=== PATIENT | male | born 1955 | race American Indian/Alaskan Native ===

== ENCOUNTER 2018-08-11 14:27 | Inpatient (IN) | payer MEDICAID ==
[2018-08-11] VITALS (12 sets, daily range): BP systolic 148–190
[~2018-08-11] VITALS: Ht 177.8 cm; Wt 94.8 kg
[~2018-08-11 14:27] MED LIST: ETOMIDATE 20 MG/ 10 ML VIAL (AMIDATE) IVP ONE
[2018-08-11] MEDS ORDERED: ETOMIDATE 20 MG/ 10 ML VIAL (AMIDATE) IVP ONE (14:45)
[2018-08-11] MEDS ORDERED: NS 1000 ML IV.SOLN IV ONE (14:45)
[2018-08-11] MEDS ORDERED: PROPOFOL DRIP 100 ML IV ONE ×3 (14:45→17:45)
[2018-08-11] MEDS ORDERED: PANTOPRAZOLE SODIUM 40 MG/VIAL (PROTONIX) IVP ONE (15:15)
[2018-08-11 15:18] LABS: INR 1.2 (0.80-1.20); PROTHROMBIN TIME 11.7 SECS (9.5-12.5)
[2018-08-11 15:20] LABS: HEMATOCRIT 55.8 % (36-54); HEMOGLOBIN 18.9 g/dL (14.0-18.0); MEAN CORPUSCULAR HEMOGLOBIN 32 pg (27-31); MEAN CORPUSCULAR HGB CONC 34 % (32-36); MEAN CORPUSCULAR VOLUME 93 fL (79.0-98.0); RED BLOOD CELL COUNT(AUTO) 5.98 MIL/uL (4.2-6.2); WHITE BLOOD COUNT (AUTO) 28.1 K/uL (4.8-10.8)
[2018-08-11 15:21] LABS: ALANINE AMINOTRANSFERASE 46 U/L (12-78); ALBUMIN 3.8 g/dL (3.4-4.8); ANION GAP 15 (5-15); ASPARTATE AMINOTRANSFERASE 51 U/L (10-37); CALCIUM 9.3 mg/dL (8.4-11.0); CHLORIDE 105 mmol/L (98-107); CREATININE 1.96 mg/dL (0.55-1.30); GLUCOSE 137 mg/dL (70-99); LIPASE 56 U/L (73-393); PLATELET COUNT (AUTO) 308 K/uL (130-430); POTASSIUM 3.9 mmol/L (3.5-5.1); RED CELL DISTRIBUTION WIDTH 13.7 % (9.0-15.0); SODIUM SERUM 142 mmol/L (136-145); UREA NITROGEN, BLOOD 40 mg/dL (8-21)
[2018-08-11] MEDS ORDERED: PIPERACILLIN/TAZO 3.375 GM in NS 50 ML IV ONE (15:30)
[2018-08-11 15:32] LABS: GFR AFRICAN AMERICAN 45 mL/min (>90)
[2018-08-11 15:33] LABS: ACETAMINOPHEN < 1 ug/mL (1-30); ALCOHOL, BLOOD < 3 mg/dL (<10)
[2018-08-11 15:51] LABS: BILIRUBIN,URINE NEGATIVE (NEGATIVE); BLOOD, URINE 1+ (NEGATIVE); CLARITY/URINE CLEAR (CLEAR); COLOR,URINE YELLOW (YELLOW); GLUCOSE,URINE NEGATIVE (NEGATIVE); KETONES,URINE NEGATIVE (NEGATIVE); LEUKOCYTE ESTERASE ,URINE NEGATIVE (NEGATIVE); NITRITE, URINE NEGATIVE (NEGATIVE); PROTEIN URINE 2+ (NEGATIVE); UROBILINOGEN,URINE 0.2 (0.2-1.0)
[2018-08-11 15:53] LABS: BAND % (MANUAL) 27 % (0-6); BASOPHILS % (MANUAL) 0 % (0-2); EOSINOPHILS % (MANUAL) 0 % (0-7); LYMPHOCYTES % (MANUAL) 5 % (20-46); MONOCYTES % (MANUAL) 8 % (0-11)
[2018-08-11 15:56] LABS: ACETONE, SERUM NEGATIVE (NEGATIVE)
[2018-08-11 16:04] LABS: BARBITURATE, URINE NEGATIVE (NEG <=200); BENZODIAZEPINE, URINE NEGATIVE (NEG <=150); CANNABINOID, URINE NEGATIVE (NEG <=50); COCAINE, URINE NEGATIVE (NEG <=150); METHAMPHETAMINES SCREEN,URINE POSITIVE (NEG <=500); OPIATE, URINE NEGATIVE (NEG <=100); PHENCYCLIDINE SCREEN,URINE NEGATIVE (NEG <=25); UR TRICYCLIC ANTIDEPRESSANTS NEGATIVE (NEG <=300); URINE AMPHETAMINE POSITIVE (NEG <=500); URINE METHADONE NEGATIVE (NEG <=200); URINE OXYCODONE SCREEN NEGATIVE (NEG <=100); URINE PROPOXYPHENE SCREEN NEGATIVE (NEG <=300)
[2018-08-11 16:09] LABS: BACTERIA,URINE FEW /HPF (None Seen); RBC,URINE 0-3 /HPF (0-3); WBC,URINE 0-3 /HPF (0-3)
[2018-08-11] MEDS ORDERED: PIPERACILLIN/TAZOBACTAM 3.375 GM/VIAL (ZOSYN) IV ONE (16:53)
[2018-08-11] MEDS ORDERED: NACL 0.9% 1,000 ML IV ONE (17:30)
[2018-08-11] MEDS: VANCOMYCIN HCL 1,000 MG in NS 250 ML IV SCH (19:31)
[2018-08-11] MEDS: NACL 0.9% 1,000 ML IV SCH (19:33)
[2018-08-11] MEDS: hydrALAZINE HCL 20 MG/ML VIAL IVP PRN (20:45)
[2018-08-11] MEDS ORDERED: hydrALAZINE HCL 20 MG/ML VIAL ONE (20:53)
[2018-08-11] MEDS: ACETAMINOPHEN 500 MG TABLET NG PRN (20:56)
[2018-08-11] MEDS: PROPOFOL DRIP 100 ML IV PRN (21:08)
[2018-08-11] MEDS ORDERED: IPRATROPIUM BROM 0.5 MG/2.5 ML VIAL.NEB (ATROVENT) INH PRN (21:30)
[2018-08-11] MEDS ORDERED: ALBUTEROL SULFATE 0.083% 2.5 MG/3 ML VIAL.NEB INH PRN (21:30)
[2018-08-11] MEDS: LORazepam 2 MG/ML VIAL IVP PRN (22:04)
[2018-08-11] MEDS ORDERED: niCARdipine 25 MG in D5W 240 ML IV PRN (22:15)
[2018-08-11] MEDS ORDERED: niCARdipine 2.5 MG/ML, 10 ML VIAL (CARDENE) IV ONE (22:18)
[2018-08-11 23:31] LABS: CKMB RELATIVE INDEX 1.2 (0.0-2.9)
[2018-08-11] MEDS: PIPERACILLIN/TAZO 3.375/DEX-IS 50 ML IV SCH (23:36)
[2018-08-11] MEDS: IPRATROPIUM BROM 0.5 MG/2.5 ML VIAL.NEB (ATROVENT) INH SCH (23:55)
[2018-08-11] MEDS: ALBUTEROL SULFATE 0.083% 2.5 MG/3 ML VIAL.NEB INH SCH (23:55)
[2018-08-12] VITALS (34 sets, daily range): BP systolic 121–167
[2018-08-12] MEDS: NACL 0.9% 1,000 ML IV SCH ×4 (03:01→19:50)
[2018-08-12] MEDS: ALBUTEROL SULFATE 0.083% 2.5 MG/3 ML VIAL.NEB INH SCH ×2 (03:33→07:40)
[2018-08-12] MEDS: IPRATROPIUM BROM 0.5 MG/2.5 ML VIAL.NEB (ATROVENT) INH SCH ×4 (03:34→19:50)
[2018-08-12] MEDS: PROPOFOL DRIP 100 ML IV PRN (04:58)
[2018-08-12] MEDS: PIPERACILLIN/TAZO 3.375/DEX-IS 50 ML IV SCH ×4 (05:00→23:42)
[2018-08-12 05:54] LABS: BASOPHILS # (AUTO) 0.1 K/uL (0.0-0.2); BASOPHILS % (AUTO) 0.5 % (0.0-2.0); HEMATOCRIT 54.1 % (36-54); HEMOGLOBIN 17.9 g/dL (14.0-18.0); LYMPHOCYTES # (AUTO) 1.8 K/uL (1.0-5.5); LYMPHOCYTES % (AUTO) 6.3 % (20.5-51.5); MEAN CORPUSCULAR HEMOGLOBIN 31 pg (27-31); MEAN CORPUSCULAR HGB CONC 33 % (32-36); MEAN CORPUSCULAR VOLUME 94 fL (79.0-98.0); MONOCYTES # (AUTO) 2.5 K/uL (0.0-1.0); NEUTROPHILS # (AUTO) 23.6 K/uL (1.8-7.7); PLATELET COUNT (AUTO) 200 K/uL (130-430); RED BLOOD CELL COUNT(AUTO) 5.75 MIL/uL (4.2-6.2)
[2018-08-12 06:44] LABS: ALBUMIN 2.8 g/dL (3.4-4.8); CALCIUM 8.4 mg/dL (8.4-11.0); CREATININE 1.74 mg/dL (0.55-1.30); TOTAL BILIRUBIN 1.5 mg/dL (0.0-1.0)
[2018-08-12 07:31] LABS: CKMB RELATIVE INDEX 0.6 (0.0-2.9); CREATINE KINASE MB 3.9 ng/mL (0-3.6)
[2018-08-12 08:41] LABS: NEUTROPHILS % (AUTO) 84.2 % (40.0-70.0)
[2018-08-12] MEDS: FAMOTIDINE PF 20 MG/2 ML VIAL IVP SCH (08:55)
[2018-08-12] MEDS ORDERED: NACL 0.9% 1,000 ML IV ONE (10:00)
[2018-08-12] MEDS: ENALAPRILAT DIHYDRATE 1.25 MG/ML VIAL IVP PRN (11:12)
[2018-08-12] MEDS: LORazepam 2 MG/ML VIAL IVP PRN ×3 (11:13→17:58)
[2018-08-12] MEDS: LevALBUTEROL HCL 1.25 MG/0.5 ML *CONC.* VIAL.NEB (XOPENEX CONC.) INH SCH ×2 (12:08→19:50)
[2018-08-12] MEDS: ACETAMINOPHEN 500 MG TABLET NG PRN (14:35)
[2018-08-12] MEDS: MORPHINE 2 MG/ML INJ. SYRINGE IVP PRN (15:52)
[2018-08-12] MEDS: VANCOMYCIN HCL 1,000 MG in NS 250 ML IV SCH (18:47)
[2018-08-13] VITALS (31 sets, daily range): BP systolic 130–182
[2018-08-13] MEDS: LevALBUTEROL HCL 1.25 MG/0.5 ML *CONC.* VIAL.NEB (XOPENEX CONC.) INH SCH ×4 (00:50→19:35)
[2018-08-13] MEDS: IPRATROPIUM BROM 0.5 MG/2.5 ML VIAL.NEB (ATROVENT) INH SCH ×4 (00:50→19:35)
[2018-08-13] MEDS: NACL 0.9% 1,000 ML IV SCH ×2 (02:36→09:00)
[2018-08-13] MEDS: PIPERACILLIN/TAZO 3.375/DEX-IS 50 ML IV SCH ×3 (05:29→17:19)
[2018-08-13 05:57] LABS: BASOPHILS # (AUTO) 0.1 K/uL (0.0-0.2); BASOPHILS % (AUTO) 0.3 % (0.0-2.0); HEMATOCRIT 44.8 % (36-54); HEMOGLOBIN 14.9 g/dL (14.0-18.0); LYMPHOCYTES % (AUTO) 5.8 % (20.5-51.5); MEAN CORPUSCULAR HEMOGLOBIN 31 pg (27-31); MEAN CORPUSCULAR HGB CONC 33 % (32-36); MEAN CORPUSCULAR VOLUME 94 fL (79.0-98.0); MONOCYTES # (AUTO) 1.4 K/uL (0.0-1.0); MONOCYTES % (AUTO) 7.9 % (1.7-9.3); NEUTROPHILS # (AUTO) 14.8 K/uL (1.8-7.7); PLATELET COUNT (AUTO) 120 K/uL (130-430); RED BLOOD CELL COUNT(AUTO) 4.77 MIL/uL (4.2-6.2); RED CELL DISTRIBUTION WIDTH 13.5 % (9.0-15.0); WHITE BLOOD COUNT (AUTO) 17.3 K/uL (4.8-10.8)
[2018-08-13 06:42] LABS: CREATININE 1.24 mg/dL (0.55-1.30); POTASSIUM 3.7 mmol/L (3.5-5.1)
[2018-08-13 07:00] LABS: ALBUMIN 2.1 g/dL (3.4-4.8); THYROID STIMULATING HORMONE 0.99 uIu/mL (0.36-3.74); TOTAL BILIRUBIN 1.8 mg/dL (0.0-1.0)
[2018-08-13] MEDS: FAMOTIDINE PF 20 MG/2 ML VIAL IVP SCH (08:59)
[2018-08-13] MEDS: ENALAPRILAT DIHYDRATE 1.25 MG/ML VIAL IVP PRN (10:13)
[2018-08-13] MEDS: 0.45% NACL 1,000 ML IV SCH ×2 (11:46→18:07)
[2018-08-13] MEDS: ACETAMINOPHEN 500 MG TABLET NG PRN (14:29)
[2018-08-13] MEDS: VANCOMYCIN HCL 1,000 MG in NS 250 ML IV SCH (17:20)
[2018-08-14] VITALS (31 sets, daily range): BP systolic 131–183
[2018-08-14] MEDS: IPRATROPIUM BROM 0.5 MG/2.5 ML VIAL.NEB (ATROVENT) INH SCH ×4 (00:36→19:53)
[2018-08-14] MEDS: LevALBUTEROL HCL 1.25 MG/0.5 ML *CONC.* VIAL.NEB (XOPENEX CONC.) INH SCH ×4 (00:36→19:53)
[2018-08-14] MEDS: PIPERACILLIN/TAZO 3.375/DEX-IS 50 ML IV SCH ×5 (01:58→23:30)
[2018-08-14] MEDS: 0.45% NACL 1,000 ML IV SCH ×2 (02:21→11:33)
[2018-08-14 05:10] LABS: BASOPHILS # (AUTO) 0.1 K/uL (0.0-0.2); BASOPHILS % (AUTO) 0.4 % (0.0-2.0); EOSINOPHILS % (AUTO) 0.2 % (0.0-4.0); HEMATOCRIT 40.6 % (36-54); HEMOGLOBIN 13.5 g/dL (14.0-18.0); LYMPHOCYTES % (AUTO) 5.9 % (20.5-51.5); MEAN CORPUSCULAR HEMOGLOBIN 31 pg (27-31); MEAN CORPUSCULAR HGB CONC 33 % (32-36); MEAN CORPUSCULAR VOLUME 94 fL (79.0-98.0); MONOCYTES # (AUTO) 1.3 K/uL (0.0-1.0); NEUTROPHILS # (AUTO) 14.2 K/uL (1.8-7.7); NEUTROPHILS % (AUTO) 85.5 % (40.0-70.0); PLATELET COUNT (AUTO) 118 K/uL (130-430); RED BLOOD CELL COUNT(AUTO) 4.34 MIL/uL (4.2-6.2); RED CELL DISTRIBUTION WIDTH 13.7 % (9.0-15.0); WHITE BLOOD COUNT (AUTO) 16.6 K/uL (4.8-10.8)
[2018-08-14 05:30] LABS: CALCIUM 8.1 mg/dL (8.4-11.0); CREATININE 1.02 mg/dL (0.55-1.30); POTASSIUM 3.7 mmol/L (3.5-5.1)
[2018-08-14 05:33] LABS: ALBUMIN 1.9 g/dL (3.4-4.8); TOTAL BILIRUBIN 1.2 mg/dL (0.0-1.0)
[2018-08-14] MEDS: FAMOTIDINE PF 20 MG/2 ML VIAL IVP SCH (09:03)
[2018-08-14] MEDS: ACETAMINOPHEN 500 MG TABLET NG PRN (15:31)
[2018-08-14] MEDS: ENALAPRILAT DIHYDRATE 1.25 MG/ML VIAL IVP PRN ×2 (15:31→23:33)
[2018-08-14] MEDS: VANCOMYCIN HCL 1,000 MG in NS 250 ML IV SCH (17:24)
[2018-08-15] VITALS (32 sets, daily range): BP systolic 121–174
[2018-08-15] MEDS: IPRATROPIUM BROM 0.5 MG/2.5 ML VIAL.NEB (ATROVENT) INH SCH ×4 (00:32→19:43)
[2018-08-15] MEDS: LevALBUTEROL HCL 1.25 MG/0.5 ML *CONC.* VIAL.NEB (XOPENEX CONC.) INH SCH ×4 (00:32→19:43)
[2018-08-15] MEDS ORDERED: VANCOMYCIN HCL 1,250 MG in NS 250 ML IV SCH (05:00)
[2018-08-15] MEDS: ACETAMINOPHEN 500 MG TABLET NG PRN ×4 (05:23→23:58)
[2018-08-15] MEDS: PIPERACILLIN/TAZO 3.375/DEX-IS 50 ML IV SCH ×2 (05:24→12:45)
[2018-08-15] MEDS: FAMOTIDINE PF 20 MG/2 ML VIAL IVP SCH (08:04)
[2018-08-15 08:49] LABS: BASOPHILS % (AUTO) 0.3 % (0.0-2.0); CALCIUM 7.6 mg/dL (8.4-11.0); CREATININE 1.02 mg/dL (0.55-1.30); EOSINOPHILS # (AUTO) 0.2 K/uL (0.0-0.4); EOSINOPHILS % (AUTO) 1.2 % (0.0-4.0); HEMATOCRIT 37.3 % (36-54); HEMOGLOBIN 12.4 g/dL (14.0-18.0); LYMPHOCYTES # (AUTO) 1.1 K/uL (1.0-5.5); LYMPHOCYTES % (AUTO) 7.3 % (20.5-51.5); MEAN CORPUSCULAR HEMOGLOBIN 31 pg (27-31); MEAN CORPUSCULAR HGB CONC 33 % (32-36); MEAN CORPUSCULAR VOLUME 94 fL (79.0-98.0); MONOCYTES # (AUTO) 1.5 K/uL (0.0-1.0); MONOCYTES % (AUTO) 9.6 % (1.7-9.3); NEUTROPHILS # (AUTO) 12.8 K/uL (1.8-7.7); PLATELET COUNT (AUTO) 119 K/uL (130-430); POTASSIUM 3.2 mmol/L (3.5-5.1); RED BLOOD CELL COUNT(AUTO) 3.96 MIL/uL (4.2-6.2); RED CELL DISTRIBUTION WIDTH 13.5 % (9.0-15.0); WHITE BLOOD COUNT (AUTO) 15.7 K/uL (4.8-10.8)
[2018-08-15 08:53] LABS: ALBUMIN 1.9 g/dL (3.4-4.8); TOTAL BILIRUBIN 1.3 mg/dL (0.0-1.0)
[2018-08-15] MEDS: 0.45% NACL 1,000 ML IV SCH ×2 (10:41→12:43)
[2018-08-15 11:12] LABS: NEUTROPHILS % (AUTO) 81.6 % (40.0-70.0)
[2018-08-15] MEDS ORDERED: POTASSIUM CHLORIDE 20 MEQ/PKT PACKET PO ONE (14:45)
[2018-08-15] MEDS: hydrALAZINE HCL 20 MG/ML VIAL IVP PRN (15:40)
[2018-08-15] MEDS: cefTRIAXone 1 GM in D5W 50 ML IV SCH (17:16)
[2018-08-15] MEDS: metroNIDAZOLE 500 mg/NS 100 ML IV SCH (21:26)
[2018-08-16] VITALS (29 sets, daily range): BP systolic 128–167
[2018-08-16] MEDS: 0.45% NACL 1,000 ML IV SCH ×2 (01:16→16:04)
[2018-08-16] MEDS: IPRATROPIUM BROM 0.5 MG/2.5 ML VIAL.NEB (ATROVENT) INH SCH ×4 (01:45→19:40)
[2018-08-16] MEDS: LevALBUTEROL HCL 1.25 MG/0.5 ML *CONC.* VIAL.NEB (XOPENEX CONC.) INH SCH ×4 (01:45→19:40)
[2018-08-16] MEDS: metroNIDAZOLE 500 mg/NS 100 ML IV SCH ×3 (05:12→21:58)
[2018-08-16] MEDS: FAMOTIDINE PF 20 MG/2 ML VIAL IVP SCH (08:55)
[2018-08-16 11:09] LABS: BASOPHILS % (AUTO) 0.3 % (0.0-2.0); EOSINOPHILS # (AUTO) 0.3 K/uL (0.0-0.4); EOSINOPHILS % (AUTO) 2.4 % (0.0-4.0); HEMATOCRIT 37.9 % (36-54); HEMOGLOBIN 12.7 g/dL (14.0-18.0); LYMPHOCYTES # (AUTO) 0.7 K/uL (1.0-5.5); LYMPHOCYTES % (AUTO) 5.4 % (20.5-51.5); MEAN CORPUSCULAR HEMOGLOBIN 31 pg (27-31); MEAN CORPUSCULAR HGB CONC 33 % (32-36); MEAN CORPUSCULAR VOLUME 94 fL (79.0-98.0); MONOCYTES # (AUTO) 1.4 K/uL (0.0-1.0); MONOCYTES % (AUTO) 9.9 % (1.7-9.3); NEUTROPHILS # (AUTO) 11.3 K/uL (1.8-7.7); PLATELET COUNT (AUTO) 155 K/uL (130-430); RED BLOOD CELL COUNT(AUTO) 4.03 MIL/uL (4.2-6.2); RED CELL DISTRIBUTION WIDTH 13.3 % (9.0-15.0); WHITE BLOOD COUNT (AUTO) 13.7 K/uL (4.8-10.8)
[2018-08-16 11:13] LABS: CALCIUM 8.3 mg/dL (8.4-11.0); CREATININE 0.72 mg/dL (0.55-1.30); POTASSIUM 3.7 mmol/L (3.5-5.1)
[2018-08-16 11:18] LABS: TOTAL BILIRUBIN 0.8 mg/dL (0.0-1.0)
[2018-08-16] MEDS: hydrALAZINE HCL 20 MG/ML VIAL IVP PRN (13:44)
[2018-08-16] MEDS: MORPHINE 2 MG/ML INJ. SYRINGE IVP PRN ×2 (14:39→22:00)
[2018-08-16] MEDS: LORazepam 2 MG/ML VIAL IVP PRN ×3 (14:39→22:00)
[2018-08-16] MEDS: cefTRIAXone 1 GM in D5W 50 ML IV SCH (16:04)
[2018-08-17] VITALS (30 sets, daily range): BP systolic 121–159
[2018-08-17] MEDS: ACETAMINOPHEN 500 MG TABLET NG PRN ×2 (01:05→08:17)
[2018-08-17] MEDS: LORazepam 2 MG/ML VIAL IVP PRN ×3 (01:18→23:54)
[2018-08-17] MEDS: IPRATROPIUM BROM 0.5 MG/2.5 ML VIAL.NEB (ATROVENT) INH SCH ×4 (01:20→19:50)
[2018-08-17] MEDS: LevALBUTEROL HCL 1.25 MG/0.5 ML *CONC.* VIAL.NEB (XOPENEX CONC.) INH SCH ×4 (01:20→19:50)
[2018-08-17] MEDS: metroNIDAZOLE 500 mg/NS 100 ML IV SCH ×3 (05:26→21:11)
[2018-08-17 06:32] LABS: BASOPHILS # (AUTO) 0.1 K/uL (0.0-0.2); BASOPHILS % (AUTO) 0.3 % (0.0-2.0); EOSINOPHILS # (AUTO) 0.1 K/uL (0.0-0.4); EOSINOPHILS % (AUTO) 0.7 % (0.0-4.0); HEMATOCRIT 38.1 % (36-54); HEMOGLOBIN 12.8 g/dL (14.0-18.0); LYMPHOCYTES # (AUTO) 0.8 K/uL (1.0-5.5); LYMPHOCYTES % (AUTO) 4.4 % (20.5-51.5); MEAN CORPUSCULAR HEMOGLOBIN 32 pg (27-31); MEAN CORPUSCULAR HGB CONC 34 % (32-36); MEAN CORPUSCULAR VOLUME 95 fL (79.0-98.0); MONOCYTES % (AUTO) 11.1 % (1.7-9.3); NEUTROPHILS # (AUTO) 14.7 K/uL (1.8-7.7); NEUTROPHILS % (AUTO) 83.5 % (40.0-70.0); PLATELET COUNT (AUTO) 199 K/uL (130-430); RED BLOOD CELL COUNT(AUTO) 4.03 MIL/uL (4.2-6.2); RED CELL DISTRIBUTION WIDTH 13.3 % (9.0-15.0); WHITE BLOOD COUNT (AUTO) 17.6 K/uL (4.8-10.8)
[2018-08-17 06:48] LABS: CALCIUM 8.2 mg/dL (8.4-11.0); CREATININE 0.81 mg/dL (0.55-1.30); POTASSIUM 3.6 mmol/L (3.5-5.1)
[2018-08-17 07:46] LABS: ERYTHROCYTE SEDIMENTATION RATE 37 MM/HR (0-15)
[2018-08-17] MEDS: FAMOTIDINE PF 20 MG/2 ML VIAL IVP SCH (08:15)
[2018-08-17] MEDS ORDERED: ENOXAPARIN SODIUM 40 MG/0.4 ML SYRINGE SUBCUT SCH (09:00)
[2018-08-17] MEDS: MORPHINE 2 MG/ML INJ. SYRINGE IVP PRN (10:14)
[2018-08-17 11:31] LABS: C-REACTIVE PROTEIN QUANT 13.7 mg/dL (0-0.5)
[2018-08-17] MEDS ORDERED: *LOVENOX 1MG/KG Q12H/PHARMACY XX ONE (13:45)
[2018-08-17] MEDS: 0.45% NACL 1,000 ML IV SCH (14:14)
[2018-08-17] MEDS ORDERED: ENOXAPARIN SODIUM 60 MG/0.6 ML SYRINGE SUBCUT ONE (14:15)
[2018-08-17] MEDS: cefTRIAXone 1 GM in D5W 50 ML IV SCH (17:35)
[2018-08-17] MEDS: ENOXAPARIN SODIUM 100 MG/ML SYRINGE SUBCUT SCH (21:12)
[2018-08-18] VITALS (27 sets, daily range): BP systolic 136–160
[2018-08-18] MEDS: LevALBUTEROL HCL 1.25 MG/0.5 ML *CONC.* VIAL.NEB (XOPENEX CONC.) INH SCH ×4 (01:13→19:39)
[2018-08-18] MEDS: IPRATROPIUM BROM 0.5 MG/2.5 ML VIAL.NEB (ATROVENT) INH SCH ×4 (01:13→19:39)
[2018-08-18] MEDS: metroNIDAZOLE 500 mg/NS 100 ML IV SCH ×3 (05:58→21:49)
[2018-08-18 06:00] LABS: BASOPHILS % (AUTO) 0.3 % (0.0-2.0); EOSINOPHILS # (AUTO) 0.3 K/uL (0.0-0.4); EOSINOPHILS % (AUTO) 1.7 % (0.0-4.0); HEMATOCRIT 37.5 % (36-54); HEMOGLOBIN 12.6 g/dL (14.0-18.0); LYMPHOCYTES # (AUTO) 1.1 K/uL (1.0-5.5); LYMPHOCYTES % (AUTO) 6.6 % (20.5-51.5); MEAN CORPUSCULAR HEMOGLOBIN 32 pg (27-31); MEAN CORPUSCULAR HGB CONC 34 % (32-36); MEAN CORPUSCULAR VOLUME 94 fL (79.0-98.0); MONOCYTES # (AUTO) 1.5 K/uL (0.0-1.0); MONOCYTES % (AUTO) 9.3 % (1.7-9.3); NEUTROPHILS # (AUTO) 13.5 K/uL (1.8-7.7); NEUTROPHILS % (AUTO) 82.1 % (40.0-70.0); PLATELET COUNT (AUTO) 297 K/uL (130-430); RED BLOOD CELL COUNT(AUTO) 3.98 MIL/uL (4.2-6.2); RED CELL DISTRIBUTION WIDTH 13.4 % (9.0-15.0); WHITE BLOOD COUNT (AUTO) 16.5 K/uL (4.8-10.8)
[2018-08-18 06:33] LABS: ALBUMIN 1.9 g/dL (3.4-4.8); CALCIUM 8.4 mg/dL (8.4-11.0); CREATININE 0.78 mg/dL (0.55-1.30); POTASSIUM 3.7 mmol/L (3.5-5.1); TOTAL BILIRUBIN 0.6 mg/dL (0.0-1.0)
[2018-08-18 07:03] LABS: C-REACTIVE PROTEIN QUANT 26.1 mg/dL (0-0.5)
[2018-08-18 07:36] LABS: ERYTHROCYTE SEDIMENTATION RATE 54 MM/HR (0-15)
[2018-08-18] MEDS: ENOXAPARIN SODIUM 100 MG/ML SYRINGE SUBCUT SCH ×2 (09:25→21:51)
[2018-08-18] MEDS: FAMOTIDINE PF 20 MG/2 ML VIAL IVP SCH (09:25)
[2018-08-18] MEDS: MINERAL OIL/PETROLATUM,WHITE 3.5 GM EYE OINT. OP SCH ×3 (15:00→21:51)
[2018-08-18] MEDS: cefTRIAXone 1 GM in D5W 50 ML IV SCH (16:36)
[2018-08-18] MEDS: 0.45% NACL 1,000 ML IV SCH (17:41)
[2018-08-19] VITALS (29 sets, daily range): BP systolic 131–183
[2018-08-19] MEDS: IPRATROPIUM BROM 0.5 MG/2.5 ML VIAL.NEB (ATROVENT) INH SCH ×4 (01:13→19:36)
[2018-08-19] MEDS: LevALBUTEROL HCL 1.25 MG/0.5 ML *CONC.* VIAL.NEB (XOPENEX CONC.) INH SCH ×4 (01:13→19:35)
[2018-08-19 05:55] LABS: BASOPHILS % (AUTO) 0.2 % (0.0-2.0); EOSINOPHILS # (AUTO) 0.4 K/uL (0.0-0.4); EOSINOPHILS % (AUTO) 1.8 % (0.0-4.0); HEMATOCRIT 38.2 % (36-54); HEMOGLOBIN 12.9 g/dL (14.0-18.0); LYMPHOCYTES # (AUTO) 1.2 K/uL (1.0-5.5); LYMPHOCYTES % (AUTO) 6.3 % (20.5-51.5); MEAN CORPUSCULAR HEMOGLOBIN 32 pg (27-31); MEAN CORPUSCULAR HGB CONC 34 % (32-36); MEAN CORPUSCULAR VOLUME 94 fL (79.0-98.0); MONOCYTES # (AUTO) 1.7 K/uL (0.0-1.0); MONOCYTES % (AUTO) 8.5 % (1.7-9.3); NEUTROPHILS # (AUTO) 16.2 K/uL (1.8-7.7); NEUTROPHILS % (AUTO) 83.2 % (40.0-70.0); PLATELET COUNT (AUTO) 388 K/uL (130-430); RED BLOOD CELL COUNT(AUTO) 4.07 MIL/uL (4.2-6.2); RED CELL DISTRIBUTION WIDTH 13.4 % (9.0-15.0); WHITE BLOOD COUNT (AUTO) 19.5 K/uL (4.8-10.8)
[2018-08-19] MEDS: metroNIDAZOLE 500 mg/NS 100 ML IV SCH ×3 (06:06→21:11)
[2018-08-19 06:25] LABS: ALBUMIN 1.8 g/dL (3.4-4.8); CALCIUM 8.2 mg/dL (8.4-11.0); CREATININE 0.81 mg/dL (0.55-1.30); POTASSIUM 3.7 mmol/L (3.5-5.1); TOTAL BILIRUBIN 0.5 mg/dL (0.0-1.0)
[2018-08-19] MEDS: FAMOTIDINE PF 20 MG/2 ML VIAL IVP SCH (09:54)
[2018-08-19] MEDS: MINERAL OIL/PETROLATUM,WHITE 3.5 GM EYE OINT. OP SCH ×3 (09:55→20:24)
[2018-08-19] MEDS: ENOXAPARIN SODIUM 100 MG/ML SYRINGE SUBCUT SCH (09:56)
[2018-08-19] MEDS: cefTRIAXone 1 GM in D5W 50 ML IV SCH (15:53)
[2018-08-19] MEDS: 0.45% NACL 1,000 ML IV SCH (15:56)
[2018-08-19] MEDS: HEPARIN 25,000 UNITS/D5W 250ML 250 ML IV PRN (17:49)
[2018-08-19] MEDS: ENALAPRILAT DIHYDRATE 1.25 MG/ML VIAL IVP PRN (20:23)
[2018-08-20] VITALS (31 sets, daily range): BP systolic 136–168
[2018-08-20] MEDS: LevALBUTEROL HCL 1.25 MG/0.5 ML *CONC.* VIAL.NEB (XOPENEX CONC.) INH SCH ×4 (00:49→19:15)
[2018-08-20] MEDS: IPRATROPIUM BROM 0.5 MG/2.5 ML VIAL.NEB (ATROVENT) INH SCH ×4 (00:49→19:15)
[2018-08-20] MEDS: metroNIDAZOLE 500 mg/NS 100 ML IV SCH ×3 (05:49→21:37)
[2018-08-20 07:46] LABS: BASOPHILS % (AUTO) 0.1 % (0.0-2.0); EOSINOPHILS # (AUTO) 0.1 K/uL (0.0-0.4); EOSINOPHILS % (AUTO) 0.8 % (0.0-4.0); HEMATOCRIT 29.5 % (36-54); LYMPHOCYTES # (AUTO) 0.9 K/uL (1.0-5.5); LYMPHOCYTES % (AUTO) 5.8 % (20.5-51.5); MEAN CORPUSCULAR HEMOGLOBIN 31 pg (27-31); MEAN CORPUSCULAR HGB CONC 33 % (32-36); MEAN CORPUSCULAR VOLUME 95 fL (79.0-98.0); MONOCYTES % (AUTO) 6.2 % (1.7-9.3); NEUTROPHILS # (AUTO) 13.9 K/uL (1.8-7.7); NEUTROPHILS % (AUTO) 87.1 % (40.0-70.0); PLATELET COUNT (AUTO) 404 K/uL (130-430); RED CELL DISTRIBUTION WIDTH 13.5 % (9.0-15.0)
[2018-08-20 08:00] LABS: ALBUMIN 1.7 g/dL (3.4-4.8); CALCIUM 7.9 mg/dL (8.4-11.0); CREATININE 0.74 mg/dL (0.55-1.30); POTASSIUM 3.8 mmol/L (3.5-5.1); TOTAL BILIRUBIN 0.5 mg/dL (0.0-1.0)
[2018-08-20] MEDS: MINERAL OIL/PETROLATUM,WHITE 3.5 GM EYE OINT. OP SCH ×3 (08:26→20:17)
[2018-08-20] MEDS: FAMOTIDINE PF 20 MG/2 ML VIAL IVP SCH (08:26)
[2018-08-20 08:34] LABS: HEMOGLOBIN 9.7 g/dL (14.0-18.0)
[2018-08-20] MEDS ORDERED: HEPARIN SODIUM,PORCINE 3000 UNITS/0.6 ML BOLUS IVP PRN (11:15)
[2018-08-20] MEDS ORDERED: HEPARIN SODIUM,PORCINE 2000 UNITS/0.4 ML BOLUS IVP PRN (11:15)
[2018-08-20] MEDS ORDERED: BALSAM PERU/CASTOR OIL 60 GM OINT...G. TP ONE (11:45)
[2018-08-20] MEDS: cefTRIAXone 1 GM in D5W 50 ML IV SCH (16:01)
[2018-08-20] MEDS: 0.45% NACL 1,000 ML IV SCH (16:02)
[2018-08-20] MEDS: HEPARIN 25,000 UNITS/D5W 250ML 250 ML IV PRN (16:32)
[2018-08-20] MEDS: ENALAPRILAT DIHYDRATE 1.25 MG/ML VIAL IVP PRN (17:21)
[2018-08-21] VITALS (33 sets, daily range): BP systolic 128–164
[2018-08-21] MEDS: IPRATROPIUM BROM 0.5 MG/2.5 ML VIAL.NEB (ATROVENT) INH SCH ×4 (00:45→19:49)
[2018-08-21] MEDS: LevALBUTEROL HCL 1.25 MG/0.5 ML *CONC.* VIAL.NEB (XOPENEX CONC.) INH SCH ×4 (00:45→19:50)
[2018-08-21 05:22] LABS: BASOPHILS % (AUTO) 0.2 % (0.0-2.0); EOSINOPHILS # (AUTO) 0.2 K/uL (0.0-0.4); EOSINOPHILS % (AUTO) 0.9 % (0.0-4.0); HEMATOCRIT 39.1 % (36-54); LYMPHOCYTES # (AUTO) 1.2 K/uL (1.0-5.5); MEAN CORPUSCULAR HEMOGLOBIN 32 pg (27-31); MEAN CORPUSCULAR HGB CONC 33 % (32-36); MEAN CORPUSCULAR VOLUME 95 fL (79.0-98.0); MONOCYTES # (AUTO) 1.2 K/uL (0.0-1.0); MONOCYTES % (AUTO) 5.6 % (1.7-9.3); NEUTROPHILS # (AUTO) 17.9 K/uL (1.8-7.7); NEUTROPHILS % (AUTO) 87.3 % (40.0-70.0); PLATELET COUNT (AUTO) 606 K/uL (130-430); RED BLOOD CELL COUNT(AUTO) 4.11 MIL/uL (4.2-6.2); RED CELL DISTRIBUTION WIDTH 13.2 % (9.0-15.0); WHITE BLOOD COUNT (AUTO) 20.6 K/uL (4.8-10.8)
[2018-08-21 05:47] LABS: ALBUMIN 1.8 g/dL (3.4-4.8); CREATININE 0.76 mg/dL (0.55-1.30); POTASSIUM 3.7 mmol/L (3.5-5.1); TOTAL BILIRUBIN 0.5 mg/dL (0.0-1.0)
[2018-08-21] MEDS: metroNIDAZOLE 500 mg/NS 100 ML IV SCH ×3 (05:50→21:49)
[2018-08-21] MEDS: BALSAM PERU/CASTOR OIL 60 GM OINT...G. TP SCH (07:55)
[2018-08-21] MEDS: MINERAL OIL/PETROLATUM,WHITE 3.5 GM EYE OINT. OP SCH ×3 (07:55→21:49)
[2018-08-21] MEDS: FAMOTIDINE PF 20 MG/2 ML VIAL IVP SCH (07:57)
[2018-08-21] MEDS: HEPARIN 25,000 UNITS/D5W 250ML 250 ML IV PRN (08:04)
[2018-08-21] MEDS: ACETAMINOPHEN 500 MG TABLET NG PRN (09:48)
[2018-08-21] MEDS: cefTRIAXone 1 GM in D5W 50 ML IV SCH (16:01)
[2018-08-21] MEDS: 0.45% NACL 1,000 ML IV SCH (16:32)
[2018-08-21] MEDS: CIPROFLOXACIN HCL 0.3% EYE DRP 2.5 ML DROPS OP SCH (18:34)
[2018-08-22] VITALS (36 sets, daily range): BP systolic 122–156
[2018-08-22] MEDS: CIPROFLOXACIN HCL 0.3% EYE DRP 2.5 ML DROPS OP SCH ×4 (00:22→18:29)
[2018-08-22] MEDS: HEPARIN 25,000 UNITS/D5W 250ML 250 ML IV PRN ×2 (00:25→16:28)
[2018-08-22] MEDS: IPRATROPIUM BROM 0.5 MG/2.5 ML VIAL.NEB (ATROVENT) INH SCH ×4 (01:35→19:40)
[2018-08-22] MEDS: LevALBUTEROL HCL 1.25 MG/0.5 ML *CONC.* VIAL.NEB (XOPENEX CONC.) INH SCH ×4 (01:35→19:40)
[2018-08-22 04:30] LABS: BILIRUBIN,URINE NEGATIVE (NEGATIVE); BLOOD, URINE 3+ (NEGATIVE); CLARITY/URINE CLEAR (CLEAR); COLOR,URINE YELLOW (YELLOW); GLUCOSE,URINE NEGATIVE (NEGATIVE); KETONES,URINE NEGATIVE (NEGATIVE); LEUKOCYTE ESTERASE ,URINE TRACE (NEGATIVE); NITRITE, URINE NEGATIVE (NEGATIVE); PH,URINE 5.5 (5.0-8.0); PROTEIN URINE TRACE (NEGATIVE)
[2018-08-22 04:38] LABS: BACTERIA,URINE FEW /HPF (None Seen)
[2018-08-22 05:48] LABS: HEMATOCRIT 37.7 % (36-54); HEMOGLOBIN 12.4 g/dL (14.0-18.0); MEAN CORPUSCULAR HEMOGLOBIN 31 pg (27-31); MEAN CORPUSCULAR HGB CONC 33 % (32-36); MEAN CORPUSCULAR VOLUME 94 fL (79.0-98.0); PLATELET COUNT (AUTO) 639 K/uL (130-430); RED CELL DISTRIBUTION WIDTH 13.3 % (9.0-15.0); WHITE BLOOD COUNT (AUTO) 20.1 K/uL (4.8-10.8)
[2018-08-22] MEDS: metroNIDAZOLE 500 mg/NS 100 ML IV SCH (06:01)
[2018-08-22 06:06] LABS: ATYPICAL LYMPHOCYTES % 0 % (0-0); BAND % (MANUAL) 5 % (0-6); BASOPHILS % (MANUAL) 0 % (0-2); EOSINOPHILS % (MANUAL) 1 % (0-7); LYMPHOCYTES % (MANUAL) 5 % (20-46); METAMYELOCYTES % 1 % (0-0); MONOCYTES % (MANUAL) 6 % (0-11); MYELOCYTES % 1 % (0-0)
[2018-08-22 06:08] LABS: ALBUMIN 1.9 g/dL (3.4-4.8); CALCIUM 8.1 mg/dL (8.4-11.0); CREATININE 0.65 mg/dL (0.55-1.30); POTASSIUM 3.8 mmol/L (3.5-5.1); TOTAL BILIRUBIN 0.4 mg/dL (0.0-1.0)
[2018-08-22] MEDS ORDERED: PEG 400/HYPROMELLOSE/GLYCERIN 15 ML DROPS OP PRN (08:15)
[2018-08-22] MEDS: BALSAM PERU/CASTOR OIL 60 GM OINT...G. TP SCH (08:56)
[2018-08-22] MEDS: MINERAL OIL/PETROLATUM,WHITE 3.5 GM EYE OINT. OP SCH ×3 (08:57→20:22)
[2018-08-22] MEDS: FAMOTIDINE PF 20 MG/2 ML VIAL IVP SCH (08:57)
[2018-08-22] MEDS: 0.45% NACL 1,000 ML IV SCH (18:28)
[2018-08-22] MEDS: CEFEPIME 1 GM in D5W 50 ML IV SCH (20:22)
[2018-08-23] VITALS (35 sets, daily range): BP systolic 131–175
[2018-08-23] MEDS: IPRATROPIUM BROM 0.5 MG/2.5 ML VIAL.NEB (ATROVENT) INH SCH ×4 (01:09→19:46)
[2018-08-23] MEDS: LevALBUTEROL HCL 1.25 MG/0.5 ML *CONC.* VIAL.NEB (XOPENEX CONC.) INH SCH ×4 (01:10→19:46)
[2018-08-23] MEDS: CIPROFLOXACIN HCL 0.3% EYE DRP 2.5 ML DROPS OP SCH ×4 (01:34→18:18)
[2018-08-23 05:42] LABS: BASOPHILS # (AUTO) 0.1 K/uL (0.0-0.2); BASOPHILS % (AUTO) 0.7 % (0.0-2.0); EOSINOPHILS # (AUTO) 0.3 K/uL (0.0-0.4); EOSINOPHILS % (AUTO) 1.9 % (0.0-4.0); HEMATOCRIT 36.6 % (36-54); HEMOGLOBIN 12.1 g/dL (14.0-18.0); LYMPHOCYTES # (AUTO) 1.1 K/uL (1.0-5.5); LYMPHOCYTES % (AUTO) 6.5 % (20.5-51.5); MEAN CORPUSCULAR HEMOGLOBIN 31 pg (27-31); MEAN CORPUSCULAR HGB CONC 33 % (32-36); MEAN CORPUSCULAR VOLUME 95 fL (79.0-98.0); MONOCYTES # (AUTO) 1.2 K/uL (0.0-1.0); NEUTROPHILS # (AUTO) 14.5 K/uL (1.8-7.7); NEUTROPHILS % (AUTO) 83.9 % (40.0-70.0); PLATELET COUNT (AUTO) 624 K/uL (130-430); RED BLOOD CELL COUNT(AUTO) 3.87 MIL/uL (4.2-6.2); RED CELL DISTRIBUTION WIDTH 13.6 % (9.0-15.0); WHITE BLOOD COUNT (AUTO) 17.3 K/uL (4.8-10.8)
[2018-08-23 06:08] LABS: ALBUMIN 1.8 g/dL (3.4-4.8); CALCIUM 8.1 mg/dL (8.4-11.0); CREATININE 0.72 mg/dL (0.55-1.30); POTASSIUM 3.8 mmol/L (3.5-5.1); TOTAL BILIRUBIN 0.4 mg/dL (0.0-1.0)
[2018-08-23] MEDS: FAMOTIDINE PF 20 MG/2 ML VIAL IVP SCH (08:26)
[2018-08-23] MEDS: HEPARIN 25,000 UNITS/D5W 250ML 250 ML IV PRN ×2 (08:30→22:46)
[2018-08-23] MEDS: CEFEPIME 1 GM in D5W 50 ML IV SCH ×2 (08:35→21:01)
[2018-08-23] MEDS: MINERAL OIL/PETROLATUM,WHITE 3.5 GM EYE OINT. OP SCH ×3 (08:55→21:01)
[2018-08-23] MEDS: BALSAM PERU/CASTOR OIL 60 GM OINT...G. TP SCH (08:55)
[2018-08-23] MEDS: hydrALAZINE HCL 20 MG/ML VIAL IVP PRN (09:23)
[2018-08-23] MEDS: 0.45% NACL 1,000 ML IV SCH (17:25)
[2018-08-24] VITALS (31 sets, daily range): BP systolic 124–158
[2018-08-24] MEDS: CIPROFLOXACIN HCL 0.3% EYE DRP 2.5 ML DROPS OP SCH ×4 (00:38→18:14)
[2018-08-24] MEDS: IPRATROPIUM BROM 0.5 MG/2.5 ML VIAL.NEB (ATROVENT) INH SCH ×4 (01:34→19:45)
[2018-08-24] MEDS: LevALBUTEROL HCL 1.25 MG/0.5 ML *CONC.* VIAL.NEB (XOPENEX CONC.) INH SCH ×4 (01:35→19:45)
[2018-08-24 05:19] LABS: BASOPHILS # (AUTO) 0.1 K/uL (0.0-0.2); BASOPHILS % (AUTO) 0.9 % (0.0-2.0); EOSINOPHILS # (AUTO) 0.3 K/uL (0.0-0.4); EOSINOPHILS % (AUTO) 1.8 % (0.0-4.0); HEMATOCRIT 38.2 % (36-54); HEMOGLOBIN 12.8 g/dL (14.0-18.0); LYMPHOCYTES % (AUTO) 6.7 % (20.5-51.5); MEAN CORPUSCULAR HEMOGLOBIN 32 pg (27-31); MEAN CORPUSCULAR HGB CONC 34 % (32-36); MEAN CORPUSCULAR VOLUME 94 fL (79.0-98.0); MONOCYTES # (AUTO) 1.1 K/uL (0.0-1.0); MONOCYTES % (AUTO) 7.6 % (1.7-9.3); NEUTROPHILS # (AUTO) 12.4 K/uL (1.8-7.7); PLATELET COUNT (AUTO) 669 K/uL (130-430); RED BLOOD CELL COUNT(AUTO) 4.07 MIL/uL (4.2-6.2); RED CELL DISTRIBUTION WIDTH 13.9 % (9.0-15.0); WHITE BLOOD COUNT (AUTO) 14.9 K/uL (4.8-10.8)
[2018-08-24 05:31] LABS: CALCIUM 8.4 mg/dL (8.4-11.0); CREATININE 0.54 mg/dL (0.55-1.30); POTASSIUM 3.8 mmol/L (3.5-5.1)
[2018-08-24] MEDS: CEFEPIME 1 GM in D5W 50 ML IV SCH ×2 (08:55→21:46)
[2018-08-24] MEDS: FAMOTIDINE PF 20 MG/2 ML VIAL IVP SCH (08:55)
[2018-08-24] MEDS: BALSAM PERU/CASTOR OIL 60 GM OINT...G. TP SCH (08:56)
[2018-08-24] MEDS: MINERAL OIL/PETROLATUM,WHITE 3.5 GM EYE OINT. OP SCH ×3 (08:56→21:47)
[2018-08-24] MEDS: HEPARIN 25,000 UNITS/D5W 250ML 250 ML IV PRN (14:23)
[2018-08-24] MEDS: NACL 0.9% 1,000 ML IV SCH (17:00)
[2018-08-25] VITALS (27 sets, daily range): BP systolic 122–149
[2018-08-25] MEDS: IPRATROPIUM BROM 0.5 MG/2.5 ML VIAL.NEB (ATROVENT) INH SCH ×4 (01:04→19:31)
[2018-08-25] MEDS: LevALBUTEROL HCL 1.25 MG/0.5 ML *CONC.* VIAL.NEB (XOPENEX CONC.) INH SCH ×4 (01:04→19:31)
[2018-08-25] MEDS: CIPROFLOXACIN HCL 0.3% EYE DRP 2.5 ML DROPS OP SCH ×4 (01:55→18:24)
[2018-08-25 05:49] LABS: BASOPHILS # (AUTO) 0.1 K/uL (0.0-0.2); BASOPHILS % (AUTO) 0.8 % (0.0-2.0); EOSINOPHILS # (AUTO) 0.3 K/uL (0.0-0.4); EOSINOPHILS % (AUTO) 2.1 % (0.0-4.0); HEMATOCRIT 35.1 % (36-54); LYMPHOCYTES # (AUTO) 1.4 K/uL (1.0-5.5); LYMPHOCYTES % (AUTO) 10.7 % (20.5-51.5); MEAN CORPUSCULAR HEMOGLOBIN 32 pg (27-31); MEAN CORPUSCULAR HGB CONC 34 % (32-36); MEAN CORPUSCULAR VOLUME 94 fL (79.0-98.0); MONOCYTES # (AUTO) 1.1 K/uL (0.0-1.0); MONOCYTES % (AUTO) 8.2 % (1.7-9.3); NEUTROPHILS # (AUTO) 10.6 K/uL (1.8-7.7); NEUTROPHILS % (AUTO) 78.2 % (40.0-70.0); PLATELET COUNT (AUTO) 680 K/uL (130-430); RED BLOOD CELL COUNT(AUTO) 3.73 MIL/uL (4.2-6.2); RED CELL DISTRIBUTION WIDTH 13.7 % (9.0-15.0); WHITE BLOOD COUNT (AUTO) 13.5 K/uL (4.8-10.8)
[2018-08-25] MEDS: HEPARIN 25,000 UNITS/D5W 250ML 250 ML IV PRN (06:06)
[2018-08-25 06:26] LABS: ALBUMIN 1.9 g/dL (3.4-4.8); CALCIUM 8.2 mg/dL (8.4-11.0); CREATININE 0.55 mg/dL (0.55-1.30); PHOSPHORUS 3.4 mg/dL (2.7-4.5); POTASSIUM 3.7 mmol/L (3.5-5.1); TOTAL BILIRUBIN 0.4 mg/dL (0.0-1.0)
[2018-08-25] MEDS: CEFEPIME 1 GM in D5W 50 ML IV SCH ×2 (08:19→20:11)
[2018-08-25] MEDS: FAMOTIDINE PF 20 MG/2 ML VIAL IVP SCH (08:19)
[2018-08-25] MEDS: BALSAM PERU/CASTOR OIL 60 GM OINT...G. TP SCH (08:20)
[2018-08-25] MEDS: MINERAL OIL/PETROLATUM,WHITE 3.5 GM EYE OINT. OP SCH ×3 (08:20→20:10)
[2018-08-25] MEDS ORDERED: DOCUSATE SODIUM 100 MG/10 ML UDC PO ONE (09:30)
[2018-08-25] MEDS ORDERED: MILK OF MAGNESIA 30 ML UDC PO PRN (09:30)
[2018-08-25 13:07] LABS: INR 1.1 (0.80-1.20); PROTHROMBIN TIME 11.4 SECS (9.5-12.5)
[2018-08-25] MEDS ORDERED: BUPIVACAINE /EPINEPHRINE/PF 0.25% 30 ML VIAL INJ ONE (14:00)
[2018-08-25] MEDS ORDERED: LABETALOL 100 MG/ 20ML VIAL IVP ONE (14:00)
[2018-08-25] MEDS ORDERED: NS 1000 ML IV.SOLN IV ONE (14:00)
[2018-08-25] MEDS ORDERED: NS IRRIG SOLN 1000 ML IR ONE (14:00)
[2018-08-25] MEDS ORDERED: SEVOFLURANE 15 MIN GAS INH ONE (14:00)
[2018-08-25] MEDS ORDERED: ONDANSETRON HCL 4 MG/2 ML VIAL IVP PRN (15:00)
[2018-08-25] MEDS ORDERED: fentaNYL CITRATE/PF 100 MCG/2 ML AMP IVP PRN ×2 (15:00)
[2018-08-25] MEDS: NACL 0.9% 1,000 ML IV SCH (17:00)
[2018-08-25] MEDS: DOCUSATE SODIUM 100 MG/10 ML UDC PO SCH (20:10)
[2018-08-26] VITALS (34 sets, daily range): BP systolic 120–149
[2018-08-26] MEDS: CIPROFLOXACIN HCL 0.3% EYE DRP 2.5 ML DROPS OP SCH ×4 (00:15→19:39)
[2018-08-26] MEDS: IPRATROPIUM BROM 0.5 MG/2.5 ML VIAL.NEB (ATROVENT) INH SCH ×4 (00:57→19:31)
[2018-08-26] MEDS: LevALBUTEROL HCL 1.25 MG/0.5 ML *CONC.* VIAL.NEB (XOPENEX CONC.) INH SCH ×4 (00:57→19:32)
[2018-08-26 06:05] LABS: BASOPHILS # (AUTO) 0.1 K/uL (0.0-0.2); BASOPHILS % (AUTO) 0.4 % (0.0-2.0); EOSINOPHILS # (AUTO) 0.1 K/uL (0.0-0.4); EOSINOPHILS % (AUTO) 0.8 % (0.0-4.0); HEMOGLOBIN 11.9 g/dL (14.0-18.0); LYMPHOCYTES # (AUTO) 1.2 K/uL (1.0-5.5); LYMPHOCYTES % (AUTO) 8.7 % (20.5-51.5); MEAN CORPUSCULAR HEMOGLOBIN 32 pg (27-31); MEAN CORPUSCULAR HGB CONC 33 % (32-36); MEAN CORPUSCULAR VOLUME 95 fL (79.0-98.0); MONOCYTES # (AUTO) 0.7 K/uL (0.0-1.0); MONOCYTES % (AUTO) 5.3 % (1.7-9.3); NEUTROPHILS # (AUTO) 11.9 K/uL (1.8-7.7); NEUTROPHILS % (AUTO) 84.8 % (40.0-70.0); PLATELET COUNT (AUTO) 624 K/uL (130-430); RED BLOOD CELL COUNT(AUTO) 3.79 MIL/uL (4.2-6.2); RED CELL DISTRIBUTION WIDTH 13.7 % (9.0-15.0); WHITE BLOOD COUNT (AUTO) 14.1 K/uL (4.8-10.8)
[2018-08-26 07:07] LABS: CALCIUM 8.2 mg/dL (8.4-11.0); CREATININE 0.58 mg/dL (0.55-1.30)
[2018-08-26] MEDS: DOCUSATE SODIUM 100 MG/10 ML UDC PO SCH ×2 (09:10→20:24)
[2018-08-26] MEDS: FAMOTIDINE PF 20 MG/2 ML VIAL IVP SCH (09:11)
[2018-08-26] MEDS: CEFEPIME 1 GM in D5W 50 ML IV SCH ×2 (09:11→20:24)
[2018-08-26] MEDS: MINERAL OIL/PETROLATUM,WHITE 3.5 GM EYE OINT. OP SCH ×3 (09:12→20:27)
[2018-08-26] MEDS: BALSAM PERU/CASTOR OIL 60 GM OINT...G. TP SCH (09:12)
[2018-08-26] MEDS: APIXABAN 2.5 MG TABLET PO SCH ×2 (10:00→20:26)
[2018-08-26] MEDS: NACL 0.9% 1,000 ML IV SCH (17:30)
[2018-08-27] VITALS (36 sets, daily range): BP systolic 123–153
[2018-08-27] MEDS: CIPROFLOXACIN HCL 0.3% EYE DRP 2.5 ML DROPS OP SCH ×3 (00:13→15:12)
[2018-08-27] MEDS: IPRATROPIUM BROM 0.5 MG/2.5 ML VIAL.NEB (ATROVENT) INH SCH ×4 (01:09→19:51)
[2018-08-27] MEDS: LevALBUTEROL HCL 1.25 MG/0.5 ML *CONC.* VIAL.NEB (XOPENEX CONC.) INH SCH ×4 (01:09→19:51)
[2018-08-27 06:06] LABS: BASOPHILS # (AUTO) 0.3 K/uL (0.0-0.2); BASOPHILS % (AUTO) 1.8 % (0.0-2.0); EOSINOPHILS # (AUTO) 0.2 K/uL (0.0-0.4); EOSINOPHILS % (AUTO) 1.2 % (0.0-4.0); HEMATOCRIT 37.2 % (36-54); HEMOGLOBIN 12.3 g/dL (14.0-18.0); MEAN CORPUSCULAR HEMOGLOBIN 31 pg (27-31); MEAN CORPUSCULAR HGB CONC 33 % (32-36); MEAN CORPUSCULAR VOLUME 95 fL (79.0-98.0); NEUTROPHILS # (AUTO) 14.5 K/uL (1.8-7.7); PLATELET COUNT (AUTO) 610 K/uL (130-430); RED BLOOD CELL COUNT(AUTO) 3.92 MIL/uL (4.2-6.2); RED CELL DISTRIBUTION WIDTH 13.6 % (9.0-15.0)
[2018-08-27 06:41] LABS: CALCIUM 8.3 mg/dL (8.4-11.0); CREATININE 0.63 mg/dL (0.55-1.30); POTASSIUM 3.9 mmol/L (3.5-5.1)
[2018-08-27] MEDS: ACETAMINOPHEN 500 MG TABLET NG PRN ×2 (07:48→16:24)
[2018-08-27] MEDS: DOCUSATE SODIUM 100 MG/10 ML UDC PO SCH ×2 (08:10→20:36)
[2018-08-27] MEDS: CEFEPIME 1 GM in D5W 50 ML IV SCH ×2 (08:10→20:36)
[2018-08-27] MEDS: MINERAL OIL/PETROLATUM,WHITE 3.5 GM EYE OINT. OP SCH ×3 (08:11→20:37)
[2018-08-27] MEDS: FAMOTIDINE PF 20 MG/2 ML VIAL IVP SCH (08:11)
[2018-08-27] MEDS: APIXABAN 2.5 MG TABLET PO SCH ×2 (08:12→20:39)
[2018-08-27] MEDS: BALSAM PERU/CASTOR OIL 60 GM OINT...G. TP SCH (08:14)
[2018-08-27] MEDS ORDERED: metroNIDAZOLE 500 mg/NS 100 ML IV ONE (11:15)
[2018-08-27] MEDS ORDERED: LORazepam 2 MG/ML VIAL IVP PRN (11:30)
[2018-08-27] MEDS: NACL 0.9% 1,000 ML IV SCH (16:31)
[2018-08-27] MEDS: metroNIDAZOLE 500 mg/NS 100 ML IV SCH (22:25)
[2018-08-28] VITALS (35 sets, daily range): BP systolic 123–164
[2018-08-28] MEDS: IPRATROPIUM BROM 0.5 MG/2.5 ML VIAL.NEB (ATROVENT) INH SCH ×4 (01:02→19:22)
[2018-08-28] MEDS: LevALBUTEROL HCL 1.25 MG/0.5 ML *CONC.* VIAL.NEB (XOPENEX CONC.) INH SCH ×4 (01:02→19:22)
[2018-08-28 05:17] LABS: BASOPHILS # (AUTO) 0.2 K/uL (0.0-0.2); BASOPHILS % (AUTO) 0.8 % (0.0-2.0); EOSINOPHILS # (AUTO) 0.2 K/uL (0.0-0.4); HEMATOCRIT 38.4 % (36-54); HEMOGLOBIN 12.9 g/dL (14.0-18.0); LYMPHOCYTES # (AUTO) 1.9 K/uL (1.0-5.5); LYMPHOCYTES % (AUTO) 8.3 % (20.5-51.5); MEAN CORPUSCULAR HEMOGLOBIN 32 pg (27-31); MEAN CORPUSCULAR HGB CONC 34 % (32-36); MEAN CORPUSCULAR VOLUME 94 fL (79.0-98.0); MONOCYTES # (AUTO) 1.7 K/uL (0.0-1.0); MONOCYTES % (AUTO) 7.6 % (1.7-9.3); NEUTROPHILS # (AUTO) 18.8 K/uL (1.8-7.7); NEUTROPHILS % (AUTO) 82.3 % (40.0-70.0); PLATELET COUNT (AUTO) 700 K/uL (130-430); RED BLOOD CELL COUNT(AUTO) 4.07 MIL/uL (4.2-6.2); RED CELL DISTRIBUTION WIDTH 14.1 % (9.0-15.0); WHITE BLOOD COUNT (AUTO) 22.9 K/uL (4.8-10.8)
[2018-08-28 05:38] LABS: CALCIUM 8.6 mg/dL (8.4-11.0); CREATININE 0.69 mg/dL (0.55-1.30); POTASSIUM 4.2 mmol/L (3.5-5.1)
[2018-08-28] MEDS: metroNIDAZOLE 500 mg/NS 100 ML IV SCH ×3 (05:44→21:49)
[2018-08-28] MEDS: DOCUSATE SODIUM 100 MG/10 ML UDC PO SCH ×2 (09:04→20:29)
[2018-08-28] MEDS: FAMOTIDINE PF 20 MG/2 ML VIAL IVP SCH (09:04)
[2018-08-28] MEDS: APIXABAN 2.5 MG TABLET PO SCH ×2 (09:05→20:31)
[2018-08-28] MEDS: CEFEPIME 1 GM in D5W 50 ML IV SCH ×2 (09:05→20:29)
[2018-08-28] MEDS: BALSAM PERU/CASTOR OIL 60 GM OINT...G. TP SCH (09:09)
[2018-08-28] MEDS: MINERAL OIL/PETROLATUM,WHITE 3.5 GM EYE OINT. OP SCH ×3 (09:09→20:30)
[2018-08-28] MEDS: NACL 0.9% 1,000 ML IV SCH (20:42)
[2018-08-29] VITALS (27 sets, daily range): BP systolic 122–153
[2018-08-29] MEDS: IPRATROPIUM BROM 0.5 MG/2.5 ML VIAL.NEB (ATROVENT) INH SCH ×3 (01:37→13:42)
[2018-08-29] MEDS: LevALBUTEROL HCL 1.25 MG/0.5 ML *CONC.* VIAL.NEB (XOPENEX CONC.) INH SCH ×3 (01:37→13:42)
[2018-08-29] MEDS: metroNIDAZOLE 500 mg/NS 100 ML IV SCH ×2 (05:11→13:40)
[2018-08-29 05:57] LABS: BASOPHILS % (AUTO) 0.1 % (0.0-2.0); EOSINOPHILS # (AUTO) 0.1 K/uL (0.0-0.4); EOSINOPHILS % (AUTO) 0.6 % (0.0-4.0); HEMATOCRIT 35.5 % (36-54); HEMOGLOBIN 11.9 g/dL (14.0-18.0); LYMPHOCYTES # (AUTO) 1.5 K/uL (1.0-5.5); LYMPHOCYTES % (AUTO) 8.5 % (20.5-51.5); MEAN CORPUSCULAR HEMOGLOBIN 32 pg (27-31); MEAN CORPUSCULAR HGB CONC 33 % (32-36); MEAN CORPUSCULAR VOLUME 95 fL (79.0-98.0); MONOCYTES # (AUTO) 1.2 K/uL (0.0-1.0); MONOCYTES % (AUTO) 6.9 % (1.7-9.3); NEUTROPHILS # (AUTO) 14.6 K/uL (1.8-7.7); PLATELET COUNT (AUTO) 604 K/uL (130-430); RED BLOOD CELL COUNT(AUTO) 3.75 MIL/uL (4.2-6.2); RED CELL DISTRIBUTION WIDTH 13.9 % (9.0-15.0); WHITE BLOOD COUNT (AUTO) 17.5 K/uL (4.8-10.8)
[2018-08-29 06:24] LABS: CALCIUM 8.5 mg/dL (8.4-11.0); CREATININE 0.65 mg/dL (0.55-1.30)
[2018-08-29] MEDS: FAMOTIDINE PF 20 MG/2 ML VIAL IVP SCH (09:28)
[2018-08-29] MEDS: APIXABAN 2.5 MG TABLET PO SCH (09:29)
[2018-08-29] MEDS: DOCUSATE SODIUM 100 MG/10 ML UDC PO SCH (09:29)
[2018-08-29] MEDS: MINERAL OIL/PETROLATUM,WHITE 3.5 GM EYE OINT. OP SCH ×2 (09:30→14:35)
[2018-08-29] MEDS: BALSAM PERU/CASTOR OIL 60 GM OINT...G. TP SCH (09:31)
[2018-08-29] MEDS: CEFEPIME 1 GM in D5W 50 ML IV SCH (09:34)
[2018-08-29 10:47] LABS: NEUTROPHILS % (AUTO) 83.9 % (40.0-70.0)
== END 2018-08-29 19:42 | DRG 5 ==
LOC: SED 14:27 → SIC 17:34
PROVIDERS: ADMIT Internal Medicine Hospice and Palliative Medicine; ATTEND Internal Medicine Hospice and Palliative Medicine
PROC: 5A1955Z Respiratory Ventilation, Greater than 96 Consecutive Hours (ICD-10-PCS; principal; 2018-08-11)
PROC: 0BH17EZ Insertion of Endotracheal Airway into Trachea, Via Natural or Artificial Opening (ICD-10-PCS; 2018-08-11)
PROC: 009U3ZX Drainage of Spinal Canal, Percutaneous Approach, Diagnostic (ICD-10-PCS; 2018-08-11)
PROC: 0B110F4 Bypass Trachea to Cutaneous with Tracheostomy Device, Open Approach (ICD-10-PCS; 2018-08-25)
PROC: 0DB68ZX Excision of Stomach, Via Natural or Artificial Opening Endoscopic, Diagnostic (ICD-10-PCS; 2018-08-25)
PROC: 0DH63UZ Insertion of Feeding Device into Stomach, Percutaneous Approach (ICD-10-PCS; 2018-08-25)
DX: A41.2 Sepsis due to unspecified staphylococcus (principal); I63.9 Cerebral infarction, unspecified; R65.21 Severe sepsis with septic shock; J69.0 Pneumonitis due to inhalation of food and vomit; E43 Unspecified severe protein-calorie malnutrition; G93.1 Anoxic brain damage, not elsewhere classified; D75.1 Secondary polycythemia; E83.52 Hypercalcemia; R56.9 Unspecified convulsions; N17.9 Acute kidney failure, unspecified; E86.0 Dehydration; E87.2 Acidosis; J96.00 Acute respiratory failure, unspecified whether with hypoxia or hypercapnia; D72.829 Elevated white blood cell count, unspecified; D64.9 Anemia, unspecified; F15.10 Other stimulant abuse, uncomplicated; I10 Essential (primary) hypertension; I65.1 Occlusion and stenosis of basilar artery; K29.70 Gastritis, unspecified, without bleeding; K80.20 Calculus of gallbladder without cholecystitis without obstruction; K82.8 Other specified diseases of gallbladder; M62.82 Rhabdomyolysis; R32 Unspecified urinary incontinence; Z59.0 Homelessness; Z99.11 Dependence on respirator [ventilator] status; R73.9 Hyperglycemia, unspecified; E87.0 Hyperosmolality and hypernatremia; I82.491 Acute embolism and thrombosis of other specified deep vein of right lower extremity; Z86.73 Personal history of transient ischemic attack (TIA), and cerebral infarction without residual deficits; Z87.891 Personal history of nicotine dependence
CPT/HCPCS: 36415; 36600; 70450-TC; 70496; 70498; 71045; 76700-TC; 80048; 80053; 80061; 80202-TC; 80307; 81000-TC; 82009-TC; 82550-TC; 82553-TC; 82803-TC; 83605; 83690-TC; 83735-TC; 83880; 84100-TC; 84443-TC; 84484; 85007; 85025; 85027; 85610-TC; 85651-TC; 85730-TC; 86140; 87040-TC; 87070-TC; 87081; 87086; 87205-TC; 88305; 88312; 88313; 93005; 93306; 93970; 94002; 94003; 94640; 95816; 95824; 96365; 96375; 99291; C1751; C1782; C9113; G0480; G0481; G0482; J0360; J0692; J0696; J1644; J1650; J2060; J2270; J2543; J2704; J3370; J3490; J7030; J7040; J7050; J7060; J7612; J7613

== ENCOUNTER 2019-03-19 02:55 | Inpatient (IN) | payer MEDICAID ==
[~2019-03-19] VITALS: Ht 167.6 cm; Wt 65.8 kg
[2019-03-19 03:00] VITALS: BP_SYST 130
--- NOTE | 2019-03-19 03:00 | NUR ---
Placed in room 07. Placed on director cardiac, blood pressure machine and pulse oximeter. To gown for exam. Side rails up.
--- NOTE | 2019-03-19 03:01 | NUR ---
Patient was BIB Sq [address] from [facility] for complaints of respiratory distress and satting at 91% on a non-rebreather mask and for rectal bleed. Patient is nonverbal, per family that is his baseline. Pt is able to understand what is going on. Per family, "long blink is yes and two blinks is a no, or patient can shake or nod head." Pt came in with G-tube, wound to sacrum. No other injuries/complaints per patient or noted.
--- NOTE | 2019-03-19 03:02 | NUR ---
Rodríguez ochoa in ED - 03/19/19 at 0344 by [email or web address] KAILEE Lebron at bedside examining patient.
--- NOTE | 2019-03-19 03:10 | NUR ---
ER Dr. Lebron at bedside examining patient.
--- NOTE | 2019-03-19 03:10 | NUR ---
RT at bedside for bipap placement
--- NOTE | 2019-03-19 03:18 | NUR ---
Phleb at bedside for blood draw.
--- NOTE | 2019-03-19 03:34 | NUR ---
Xray at bedside. Pt tolerated well.
[2019-03-19 03:50] LABS: BASOPHILS # (AUTO) 0.1 K/uL (0.0-0.2); BASOPHILS % (AUTO) 0.4 % (0.0-2.0); EOSINOPHILS # (AUTO) 0.6 K/uL (0.0-0.4); EOSINOPHILS % (AUTO) 3.3 % (0.0-4.0); HEMATOCRIT 45.4 % (36-54); HEMOGLOBIN 15.2 g/dL (14.0-18.0); LYMPHOCYTES # (AUTO) 1.4 K/uL (1.0-5.5); LYMPHOCYTES % (AUTO) 7.7 % (20.5-51.5); MEAN CORPUSCULAR HEMOGLOBIN 32 pg (27-31); MEAN CORPUSCULAR HGB CONC 34 % (32-36); MEAN CORPUSCULAR VOLUME 95 fL (79.0-98.0); MONOCYTES # (AUTO) 1.3 K/uL (0.0-1.0); MONOCYTES % (AUTO) 7.1 % (1.7-9.3); NEUTROPHILS % (AUTO) 81.5 % (40.0-70.0); PLATELET COUNT (AUTO) 362 K/uL (130-430); RED BLOOD CELL COUNT(AUTO) 4.79 MIL/uL (4.2-6.2); RED CELL DISTRIBUTION WIDTH 14.1 % (9.0-15.0); WHITE BLOOD COUNT (AUTO) 18.4 K/uL (4.8-10.8)
[2019-03-19 03:59] LABS: CALCIUM 8.5 mg/dL (8.4-11.0); CREATININE 0.5 mg/dL (0.55-1.30); POTASSIUM 3.6 mmol/L (3.5-5.1)
[2019-03-19 04:03] LABS: INR 1.1 (0.80-1.20); PROTHROMBIN TIME 11.4 SECS (9.5-12.5)
[2019-03-19 04:04] LABS: ALBUMIN 2.9 g/dL (3.4-4.8); TOTAL BILIRUBIN 0.4 mg/dL (0.0-1.0)
[2019-03-19] MEDS ORDERED: ASA81 GT (04:17)
[2019-03-19] MEDS ORDERED: COLL100 GT (04:17)
[2019-03-19] MEDS ORDERED: MULT-1089 GT (04:17)
[2019-03-19] MEDS ORDERED: CIPR5DRO OP (04:17)
[2019-03-19] MEDS ORDERED: BACL10TA GT (04:17)
[2019-03-19] MEDS ORDERED: VITD2000 GT (04:17)
[2019-03-19] MEDS ORDERED: ALBU2.5V7 INH ×2 (04:17)
[2019-03-19] MEDS ORDERED: BETH50TA8 GT (04:17)
[2019-03-19] MEDS ORDERED: ATROVENT INH (04:17)
--- NOTE | 2019-03-19 04:18 | NUR ---
MRSA screening was collected and sent to LAB.
--- NOTE | 2019-03-19 04:21 | NUR ---
Girlfriend, Karlee, left phone number .
[2019-03-19] MEDS ORDERED: NACL 0.9% 1,000 ML IV ONE (04:30)
[2019-03-19] MEDS ORDERED: VANCOMYCIN HCL 1,000 MG in NS 250 ML IV ONE (04:30)
[2019-03-19] MEDS ORDERED: AZITHROMYCIN 500 MG in NS 250 ML IV ONE (04:30)
[2019-03-19] MEDS ORDERED: PIPERACILLIN/TAZO 3.375 GM in NS 50 ML IV ONE (04:30)
[2019-03-19] MEDS ORDERED: TORBREX RIGHT EYE (04:50)
[2019-03-19] MEDS ORDERED: NEU100 GT (04:50)
[2019-03-19] MEDS ORDERED: PHEN100C4 GT (04:50)
[2019-03-19] MEDS ORDERED: HYT1 GT (04:50)
[2019-03-19] MEDS ORDERED: RIVA20TA GT (04:50)
[2019-03-19] MEDS ORDERED: AZITHROMYCIN 500 MG/VIAL (ZITHROMAX) IV ONE (04:52)
[2019-03-19] MEDS ORDERED: TRAM100T34 GT (04:57)
[2019-03-19] MEDS ORDERED: ZINC500P17 GT (04:57)
[2019-03-19] MEDS ORDERED: ASCO500T20 GT (04:57)
--- NOTE | 2019-03-19 04:57 | NUR ---
Medication reconciliation completed with information provided by Alejandro Lindsey. Any prior medication reconciliation on file was reviewed and corrected.
[2019-03-19] MEDS ORDERED: traMADol HCL HCL 50 MG TABLET (ULTRAM) GT ONE (05:00)
[2019-03-19] MEDS ORDERED: PIPERACILLIN/TAZOBACTAM 3.375 GM/VIAL (ZOSYN) IV ONE (05:04)
--- NOTE | 2019-03-19 05:18 | NUR ---
Verbal orders received from Dr. Lebron to place Bermudez catheter.
--- NOTE | 2019-03-19 05:20 | NUR ---
# 16 FR Bermudez catheter with use of sterile technique. Immediate return of 300 cc dark alisa urine noted. Bedside drainage bag placed below level of bladder. Urine sample collected and sent to lab. Pt tolerated procedure well.
--- NOTE | 2019-03-19 05:31 | NUR ---
Medications were given, pt tolerated well. NO adverse reaction, will continue to monitor.
[2019-03-19] MEDS ORDERED: VANCOMYCIN HCL 1000 MG/VIAL IV ONE (05:38)
[2019-03-19 05:42] LABS: BILIRUBIN,URINE NEGATIVE (NEGATIVE); CLARITY/URINE CLEAR (CLEAR); COLOR,URINE YELLOW (YELLOW); GLUCOSE,URINE NEGATIVE (NEGATIVE); KETONES,URINE NEGATIVE (NEGATIVE); LEUKOCYTE ESTERASE ,URINE NEGATIVE (NEGATIVE); NITRITE, URINE NEGATIVE (NEGATIVE); PH,URINE 5.5 (5.0-8.0); PROTEIN URINE TRACE (NEGATIVE)
[2019-03-19 05:44] LABS: BLOOD, URINE TRACE (NEGATIVE)
[2019-03-19 05:50] LABS: BACTERIA,URINE FEW /HPF (None Seen)
--- NOTE | 2019-03-19 06:10 | NUR ---
Patient will be admitted to care of Dr. Arita. Admitted to Telemetry unit. Belongings list completed. Complete and up to date summary report printed. SBAR report to be given at bedside with opportunity for questions. awaiting bed assignment. No staff until 729.
--- NOTE | 2019-03-19 07:17 | NUR ---
Report given to TIM Gabriel. All care endorsed.
[2019-03-19] MEDS ORDERED: IPRATROPIUM/ALBUTEROL SULFATE 3 ML AMPUL.NEB (DUONEB) INH ONE (07:45)
[2019-03-19] MEDS ORDERED: ERYTHROMYCIN 0.5% EYE OINT 3.5 GM OP SCH (08:00)
--- NOTE | 2019-03-19 08:30 | NUR ---
VSS PT DOES NOT REPORT PAIN OR DISCOMFORT AT THIS TIME
[2019-03-19] MEDS: ERYTHROMYCIN 0.5% EYE OINT 3.5 GM OP SCH ×3 (09:00→21:29)
[2019-03-19] MEDS ORDERED: traMADol HCL HCL 50 MG TABLET (ULTRAM) ONE (10:23)
[2019-03-19] MEDS: GABAPENTIN 100 MG CAPSULE GT SCH ×3 (10:24→19:57)
[2019-03-19] MEDS: traMADol HCL HCL 50 MG TABLET (ULTRAM) GT SCH ×3 (10:24→23:44)
[2019-03-19] MEDS: PHENYTOIN 100 MG/4 ML UDC (DILANTIN) GT SCH ×3 (10:25→19:58)
--- NOTE | 2019-03-19 10:30 | NUR ---
MEDICATION ADMINISTERED TO PT THROUGH G TUBE, TOLERATED WELL
[2019-03-19] MEDS ORDERED: PIPERACILLIN/TAZO 3.375/DEX-IS 50 ML IV ONE (10:45)
[2019-03-19 11:05] LABS: BASOPHILS # (AUTO) 0.1 K/uL (0.0-0.2); BASOPHILS % (AUTO) 0.3 % (0.0-2.0); EOSINOPHILS % (AUTO) 0.2 % (0.0-4.0); HEMATOCRIT 46.1 % (36-54); HEMOGLOBIN 15.4 g/dL (14.0-18.0); LYMPHOCYTES # (AUTO) 0.9 K/uL (1.0-5.5); MEAN CORPUSCULAR HEMOGLOBIN 32 pg (27-31); MEAN CORPUSCULAR HGB CONC 33 % (32-36); MEAN CORPUSCULAR VOLUME 96 fL (79.0-98.0); MONOCYTES # (AUTO) 1.4 K/uL (0.0-1.0); MONOCYTES % (AUTO) 5.8 % (1.7-9.3); NEUTROPHILS # (AUTO) 20.8 K/uL (1.8-7.7); PLATELET COUNT (AUTO) 356 K/uL (130-430); RED BLOOD CELL COUNT(AUTO) 4.83 MIL/uL (4.2-6.2); RED CELL DISTRIBUTION WIDTH 14.1 % (9.0-15.0); WHITE BLOOD COUNT (AUTO) 23.2 K/uL (4.8-10.8)
--- NOTE | 2019-03-19 11:06 | NUR ---
ADMISSION NOTE Received patient from ER via daniela, received report from SANAZ DUMONT. Patient admitted with diagnosis of RECTAL BLEEDING. Patient oriented to hospital routine, call light, toileting and safety-patient verbalized understanding.
[2019-03-19 11:12] VITALS: BP_SYST 160
--- NOTE | 2019-03-19 11:15 | NUR ---
Patient received a/ox1, nonverbal, does not follow commands, no signs of pain, patient is on Bipap at this time, tolerating well thus far, assessment complete, G Tube in place, insertion site is clean, dry and intact, no redness or leaking from G Tube, no residual output from G tube, IV site to left arm is patent and infusing well, IV site to right arm was discontinued as it was infiltrated, Bermudez Catheter in place, draining to gravity, skin check complete with pictures, consults for Wound Care Nurse and Dietary ordered as patient has low Pietro scale, continuing to monitor the patient, bed in lowest position, three side rails up, bed alarm on, fall, seizure and aspiration precautions in place.
[2019-03-19 11:17] LABS: CALCIUM 8.5 mg/dL (8.4-11.0); CREATININE 0.54 mg/dL (0.55-1.30); POTASSIUM 3.9 mmol/L (3.5-5.1)
--- NOTE | 2019-03-19 11:18 | NUR ---
Patient will be admitted to care of [facility]. Admitted to TELE unit. Will go to room 119A. Belongings list completed. Complete and up to date summary report printed. SBAR report to be given at bedside with opportunity for questions. BEDSIDE REPORT GIVEN TO LIN
[2019-03-19] MEDS: IPRATROPIUM/ALBUTEROL SULFATE 3 ML AMPUL.NEB (DUONEB) INH SCH ×2 (11:35→19:00)
[2019-03-19 11:53] LABS: NEUTROPHILS % (AUTO) 89.7 % (40.0-70.0)
[2019-03-19] MEDS: D5LR 1,000 ML IV SCH ×2 (12:06→16:15)
[2019-03-19] MEDS: BACLOFEN 10 MG TABLET GT SCH ×3 (12:15→19:57)
[2019-03-19] MEDS: TERAZOSIN HCL 5 MG CAPSULE (HYTRIN) GT SCH ×2 (12:15→19:58)
--- NOTE | 2019-03-19 12:15 | NUR ---
Rounds/Medication patient resting in bed, awake, eyes open, breathing is unlabored on bipap at this time, his s/o is at bedside. Administered medications to the patient, late administration due to patient being in E.R., patient tolerated well. G tube has no residual output at this time, flushes well, insertion site is intact, dressing clean, dry and intact, continuing to monitor the patient, bed in lowest position, three side rails up, bed alarm on, fall and aspiration precautions in place.
[2019-03-19] MEDS: TOBRAMYCIN SULFATE 0.3% EYE DROPS 5 ML OP SCH ×4 (12:39→23:07)
--- NOTE | 2019-03-19 12:39 | NUR ---
PULMONARY CONSULT SPOKE TO DYLAN MONTGOMERY , SHE WILL INFORM DR STOUT.
--- NOTE | 2019-03-19 12:40 | NUR ---
GASTROENTEROLOGY CONSULT SPOKE TO DYLAN MONTGOMERY, SHE WILL INFORM DR GRAFF TAR PROCESSING TECHNICIAN FOR DR العلي OF CONSULT RE- RECTAL BLEED.
--- NOTE | 2019-03-19 12:42 | NUR ---
CARDIOLOGY CONSULT SPOKE TO DYLAN MONTGOMERY AND MADE AWARE OF CARDIAC CONSULT,SHE WILL INFORM DR KAY. Addendum: 03/19/19 at 1246 by Caitie Larkin RN ABOVE NOTES CORRECTION SPOKE TO GONZALES MONTGOMERY AND MADE AWARE OF DR KAY CONSULT, SHE WILL RELAY THE MESSAGE.
[2019-03-19] MEDS ORDERED: ONDANSETRON HCL 4 MG/2 ML VIAL IVP PRN (12:45)
[2019-03-19] MEDS ORDERED: cloNIDine HCL 0.1 MG TABLET PO PRN (12:45)
[2019-03-19] MEDS ORDERED: ACETAMINOPHEN 650 MG/20.3 ML UDC GT PRN (12:45)
[2019-03-19] MEDS: DOCUSATE SODIUM 100 MG/10 ML UDC GT SCH ×2 (12:49→19:58)
[2019-03-19] MEDS: PIPERACILLIN/TAZO 3.375/DEX-IS 50 ML IV SCH ×3 (12:49→23:30)
--- NOTE | 2019-03-19 12:50 | NUR ---
Rounds/Medication patient resting in bed, awake, eyes open, breathing is unlabored on bipap at this time, his s/o is at bedside. Administered medications to the patient, patient tolerated well. G tube has no residual output at this time, flushes well, insertion site is intact, dressing clean, dry and intact, continuing to monitor the patient, bed in lowest position, three side rails up, bed alarm on, fall, seizure and aspiration precautions in place.
[2019-03-19 12:58] VITALS: BP_SYST 160
[2019-03-19] MEDS ORDERED: VANCOMYCIN HCL 1,000 MG in NS 250 ML IV SCH (13:00)
[2019-03-19] MEDS ORDERED: IOHEXOL 100 ML IV ONE (13:24)
--- NOTE | 2019-03-19 14:00 | NUR ---
RN rounds patient resting in bed, eyes closed, breathing is even and unlabored, no signs of distress, IV line is patent and infusing well, continuing to monitor, bed in lowest position, three side rails up, bed alarm on, fall and aspiration precautions in place.
[2019-03-19] MEDS: VANCOMYCIN HCL 1,000 MG in NS 250 ML IV SCH (15:10)
--- NOTE | 2019-03-19 15:16 | NUR ---
RN rounds patient resting in bed, eyes closed, breathing is even and unlabored, no signs of distress, IV line is patent, educated patient's significant other on scheduled medications uses and potential side effects, she verbalized understanding, refused eye drops at this time due to patient being asleep, educated her on medication, she verbalized understanding and states,"maybe later," will follow up as needed, patient has no other needs at this time, bed in lowest position, three side rails up, bed alarm on, fall, aspiration and seizure precautions in place. Addendum: 03/19/19 at 1626 by Khari Quintero RN Eye drops administered per MD orders, patient tolerated well, continuing to monitor the patient.
--- NOTE | 2019-03-19 15:59 | NUR ---
Follow up with pharmacy regarding eye drops and eye ointment, pharmacy to dispense medication, will follow up as needed.
[2019-03-19 16:16] VITALS: BP_SYST 102
--- NOTE | 2019-03-19 17:22 | NUR ---
CONSULTATION PAGED REASON FOR CONSULTATION:SEPSIS WAS CONSULT CALLED?Y PERSON WHO WAS NOTIFIED:DASH CONSULTING PHYSICIAN:CHEPE GUERRA POST PARTUM NURSE SPECIALTY:ID POST PARTUM NURSE PHONE NUMBER:[phone] REQUESTING PHYSICIAN:CAMRON ASTORGA
--- NOTE | 2019-03-19 17:41 | NUR ---
Rounds/Medication patient resting in bed, awake, eyes open, breathing is unlabored on 2L via oximizer at this time, O2 saturation is 99%, his son is at bedside. Administered medications to the patient, patient tolerated well. G tube has no residual output at this time, flushes well, insertion site is intact, dressing clean, dry and intact, IV line is patent and infusing well, continuing to monitor the patient, bed in lowest position, three side rails up, bed alarm on, fall, seizure and aspiration precautions in place.
--- NOTE | 2019-03-19 18:48 | NUR ---
Closing note patient resting in bed, eyes closed, breathing is even and unlabored, no signs of distress, all needs met, will endorse report to NOC shift nurse, bed in lowest position, three side rails up, bed alarm on, fall, seizure and aspiration precautions in place.
--- NOTE | 2019-03-19 19:20 | NUR ---
CHANGE OF SHIFT; pt. awake, no verbal, some moaning on stimulation, movement of eyes. HOB elevated, O2 with oximizer @ 2liters . on seizure precautions, padded side rails. will reassess later.
[2019-03-19 20:00] VITALS: BP_SYST 118
--- NOTE | 2019-03-19 20:00 | NUR ---
NOTES: VS checked. IVF on left ac infusing but noted leaking and appears swollen. fairly contracted on both hand, noted with bilateral foot drop. cardiac pattern sinus rhythm. G tube intact and clamped for meds only. denis cath to OSD with alisa color urine. rt. eye reddened and cloudy, eye drops schedule every 4 hours as well as eye antibiotic. pt. son at bedside. tech here for venous doppler study of BLE as ordered.
--- NOTE | 2019-03-19 21:30 | NUR ---
NOTES: venous doppler study completed.
--- NOTE | 2019-03-19 22:00 | NUR ---
NOTES: medications given per g tube. repositioned. due hs care done. rt. and left buttocks with foam dressing.
--- NOTE | 2019-03-19 22:30 | NUR ---
NOTES: Dr. Arita called for venous doppler US of BLE, positive for DVT rt.leg. no further order.
--- NOTE | 2019-03-19 23:30 | NUR ---
NOTES: restarted IV on left hand # 22 and resume IVF.
[2019-03-19 23:52] VITALS: BP_SYST 113
[2019-03-20] VITALS (7 sets, daily range): BP systolic 123–140
[2019-03-20] MEDS: IPRATROPIUM/ALBUTEROL SULFATE 3 ML AMPUL.NEB (DUONEB) INH SCH ×6 (00:01→20:02)
[2019-03-20] MEDS: VANCOMYCIN HCL 1,000 MG in NS 250 ML IV SCH ×2 (00:21→12:24)
--- NOTE | 2019-03-20 00:30 | NUR ---
NOTES:] oral care done, suctioned mouth. HOB elevated.
--- NOTE | 2019-03-20 03:00 | NUR ---
NOTES: pt sleeping, no distress. condition observed, continue to monitor.
[2019-03-20] MEDS: TOBRAMYCIN SULFATE 0.3% EYE DROPS 5 ML OP SCH ×6 (03:26→22:55)
[2019-03-20] MEDS: D5LR 1,000 ML IV SCH ×2 (03:27→13:43)
--- NOTE | 2019-03-20 05:00 | NUR ---
NOTES: partial am care / oral and meri care. noted mucus drainage rectally no bleeding/
[2019-03-20] MEDS: PIPERACILLIN/TAZO 3.375/DEX-IS 50 ML IV SCH ×3 (05:37→17:33)
[2019-03-20] MEDS: traMADol HCL HCL 50 MG TABLET (ULTRAM) GT SCH ×5 (06:02→22:55)
--- NOTE | 2019-03-20 06:45 | NUR ---
CLOSING NOTES; pt. resting, due meds given, IVF patent and denis cath. g tube remains clamped for meds only. fopr further care and assistance. on fall risk and seizure precautions.will endorse to day shift.
[2019-03-20 07:45] LABS: BASOPHILS # (AUTO) 0.1 K/uL (0.0-0.2); BASOPHILS % (AUTO) 0.5 % (0.0-2.0); EOSINOPHILS # (AUTO) 0.1 K/uL (0.0-0.4); EOSINOPHILS % (AUTO) 0.4 % (0.0-4.0); HEMATOCRIT 40.5 % (36-54); HEMOGLOBIN 13.5 g/dL (14.0-18.0); LYMPHOCYTES # (AUTO) 0.6 K/uL (1.0-5.5); LYMPHOCYTES % (AUTO) 2.4 % (20.5-51.5); MEAN CORPUSCULAR HEMOGLOBIN 32 pg (27-31); MEAN CORPUSCULAR HGB CONC 33 % (32-36); MEAN CORPUSCULAR VOLUME 95 fL (79.0-98.0); MONOCYTES % (AUTO) 4.3 % (1.7-9.3); NEUTROPHILS # (AUTO) 21.8 K/uL (1.8-7.7); NEUTROPHILS % (AUTO) 92.4 % (40.0-70.0); PLATELET COUNT (AUTO) 312 K/uL (130-430); RED BLOOD CELL COUNT(AUTO) 4.26 MIL/uL (4.2-6.2); RED CELL DISTRIBUTION WIDTH 13.8 % (9.0-15.0); WHITE BLOOD COUNT (AUTO) 23.6 K/uL (4.8-10.8)
--- NOTE | 2019-03-20 08:00 | NUR ---
IN BED WITH EYES OPEN NO VERBAL RESPONSE
[2019-03-20 08:17] LABS: CALCIUM 8.1 mg/dL (8.4-11.0); CREATININE 0.6 mg/dL (0.55-1.30); FREE T4 (FREE THYROXINE) 0.9 ng/dl (0.8-1.5); POTASSIUM 3.3 mmol/L (3.5-5.1); THYROID STIMULATING HORMONE 1.81 uIu/mL (0.36-3.74)
[2019-03-20 08:47] LABS: PHENYTOIN (DILANTIN) 2.1 ug/mL (10.0-20.0)
[2019-03-20] MEDS: PHENYTOIN 100 MG/4 ML UDC (DILANTIN) GT SCH ×3 (09:26→20:32)
[2019-03-20] MEDS: GABAPENTIN 100 MG CAPSULE GT SCH ×3 (09:27→20:31)
[2019-03-20] MEDS: BACLOFEN 10 MG TABLET GT SCH ×3 (09:27→20:31)
[2019-03-20] MEDS: TAMSULOSIN HCL 0.4 MG CAP PO SCH (09:27)
[2019-03-20] MEDS: ERYTHROMYCIN 0.5% EYE OINT 3.5 GM OP SCH ×2 (09:29→20:30)
[2019-03-20] MEDS: DOCUSATE SODIUM 100 MG/10 ML UDC GT SCH ×3 (09:30→20:31)
[2019-03-20] MEDS ORDERED: POTASSIUM CHLORIDE 40 MEQ, LIDOCAINE JECT 2% PF 100 MG 50 MG in NS 250 ML IV ONE (10:00)
--- NOTE | 2019-03-20 10:00 | NUR ---
WITH G- TUBE PATENT MEDS GIVEN THRU THE G- TUBE
[2019-03-20] MEDS ORDERED: DOCUSATE SODIUM 100 MG/10 ML UDC GT ONE (10:15)
[2019-03-20] MEDS ORDERED: metroNIDAZOLE 500 mg/NS 100 ML IV ONE (10:15)
--- NOTE | 2019-03-20 10:22 | NUR ---
Nutrition Update Pietro Scale 11 noted. Pt admitted for rectal bleed. Diet: Vital AF 1.2 at 50 ml/hr, Adrian BID, Free Water Flush: 100 ml q6h via GT BMI: 23.4 kg/m2 RD to follow per nutrition care standards.
[2019-03-20] MEDS ORDERED: ENOXAPARIN SODIUM 40 MG/0.4 ML SYRINGE SUBCUT ONE (10:30)
--- NOTE | 2019-03-20 10:33 | NUR ---
CONSULTATION PAGED/CALLED Reason for Consultation: [] DVT Person Who was Notified: [] FEDE Consulting Physician: [] DR AMES Finished Metal Repairer Specialty: [] ONCO/ALEJANDRA Ordering Physician: [] DR ESCALANTE
[2019-03-20] MEDS: TERAZOSIN HCL 5 MG CAPSULE (HYTRIN) GT SCH ×2 (12:17→20:32)
--- NOTE | 2019-03-20 14:00 | NUR ---
REPOSITIONED TO SIDES WITH PRESSURE SORE AT [facility] WOUND CARE DONE
[2019-03-20] MEDS ORDERED: VANCOMYCIN HCL ORAL SOLUTION 250 MG/5 ML, 80 ML GT ONE (15:30)
--- NOTE | 2019-03-20 15:50 | NUR ---
WOUND EVALUATION: Wound Consult received from Dr. Arita. Thank you Dr. Arita for the consult. Patient received in a Jorge A Bed with an IsoFlex UMA mattress with low air loss therapy initiated, obtunded. Patient is unable to turn in bed independently. Pietro Score is an 11. Past Medical History: Seizure, Stroke on anticoagulation brought in by EMS for rectal bleed and hypoxia, anoxic encephalopathy, respiratory failure, tracheostomy, dysphagia, G-tube feeding, hypertension, seizure disorder, CVA, DVT, spastic quadriplegia, left arm surgery, no other history known. Recent Labs: WBC 23.6, RBC 4.26, hemoglobin 13.5, hematocrit 40.5, sodium 146, potassium 3.3, chloride 110, BUN 20, creatinine 0.60, GFR 145, calcium 8.1, albumin 2.9, phenytoin 2.1. Microbiology: MRSA screen results positive. Blood culture results x2 in progress. Urine culture results negative. Intrinsic factors that delay wound healing: Hypoalbuminemia. Extrinsic factors that delay wound healing: Immobility. Wound Assessment: 1. Left buttock: Stage III pressure ulcer, present on admission. Wound bed has 95% red tissue, 5% yellow tissue. No odor, no drainage. Periwound intact. Surrounding tissue has dark discoloration. Wound measures 7.8 cm x 4.8 cm. 2. Right buttock: Stage 2 pressure ulcer, present on admission. Wound bed has 100% red tissue. No odor, no drainage. Periwound intact. Surrounding tissue has dark discoloration. Wound measures 7.3 cm x 5.5 cm. Recommend: Cleanse wounds with normal saline. Apply moisture barrier cream to meri-wounds. Apply Venelex ointment to wound beds. Cover with sacral foam dressing. Perform wound care daily, and as needed for dressing soiling or dislodgment. 3. Left heel: Blanchable red erythema, present on admission. 4. Right heel: Blanchable red erythema, present on admission. Recommend: Elevate, offload and float bilateral heels with one pillow lengthwise under each extremity at all times. 5. Left elbow: Scar tissue, present on admission. Recommend: Elevate, offload and flow involved area at all times. Also recommend: Reposition patient every 2 hours with pillow support, and off-load pressure areas with pillows for pressure re-distribution. Elevate, offload and float bilateral heels with one pillow lengthwise under each extremity at all times. Keep bilateral heels in Heelift boots. Perform skin care and monitor skin integrity Q shift. Use moisture barrier cream on buttocks and other moisture susceptible areas QID and as needed for soiling. Maintain patient on a low air-loss mattress.
--- NOTE | 2019-03-20 16:00 | NUR ---
SEEN BY DR. ESCALANTE WITH ORDERS
[2019-03-20] MEDS ORDERED: HEPARIN 25,000 UNITS/D5W 250ML 250 ML IV PRN ×2 (17:15→22:00)
[2019-03-20] MEDS ORDERED: HEPARIN SODIUM,PORCINE 2000 UNITS/0.4 ML BOLUS IVP PRN (17:30)
[2019-03-20] MEDS ORDERED: HEPARIN SODIUM,PORCINE 3000 UNITS/0.6 ML BOLUS IVP PRN (17:30)
[2019-03-20] MEDS: BALSAM PERU/CASTOR OIL 60 GM OINT...G. TP SCH (18:15)
--- NOTE | 2019-03-20 19:58 | NUR ---
REPORT GIVEN TO TAB
[2019-03-20] MEDS: cefTRIAXone 1 GM in D5W 50 ML IV SCH (20:00)
[2019-03-20] MEDS: MUPIROCIN 2% TOPICAL OINTMENT 22 GM NS SCH (20:29)
[2019-03-20] MEDS: metroNIDAZOLE 500 mg/NS 100 ML IV SCH (20:30)
[2019-03-20] MEDS: VANCOMYCIN HCL ORAL SOLUTION 250 MG/5 ML, 80 ML GT SCH (20:35)
--- NOTE | 2019-03-20 22:15 | NUR ---
Patient in bed. Turned repositioned q2. No acute distress noted. Gtube patent and intact. Turned repositioned q2. Will continue to monitor.
[2019-03-20] MEDS ORDERED: cefTRIAXone 1 GM IVPB PREMIX 50 ML IV ONE (23:16)
[2019-03-21] MEDS: IPRATROPIUM/ALBUTEROL SULFATE 3 ML AMPUL.NEB (DUONEB) INH SCH ×7 (00:11→23:29)
[2019-03-21] MEDS: TOBRAMYCIN SULFATE 0.3% EYE DROPS 5 ML OP SCH ×5 (03:48→21:43)
[2019-03-21] MEDS: D5LR 1,000 ML IV SCH ×2 (03:49→18:31)
[2019-03-21 05:11] LABS: HEPATITIS A AB, IgM Negative (Negative); HEPATITIS B CORE AB, IgM Negative (Negative); HEPATITIS B SURFACE AG Negative (Negative)
[2019-03-21] MEDS: metroNIDAZOLE 500 mg/NS 100 ML IV SCH ×3 (05:22→21:41)
[2019-03-21] MEDS: traMADol HCL HCL 50 MG TABLET (ULTRAM) GT SCH ×5 (05:23→19:51)
--- NOTE | 2019-03-21 05:48 | NUR ---
heparin drip start at 0500 12 unit an hour. next ptt at 11am.
[2019-03-21 07:13] LABS: BASOPHILS # (AUTO) 0.1 K/uL (0.0-0.2); BASOPHILS % (AUTO) 0.4 % (0.0-2.0); EOSINOPHILS # (AUTO) 0.3 K/uL (0.0-0.4); EOSINOPHILS % (AUTO) 1.9 % (0.0-4.0); HEMATOCRIT 35.6 % (36-54); HEMOGLOBIN 11.9 g/dL (14.0-18.0); LYMPHOCYTES # (AUTO) 0.7 K/uL (1.0-5.5); LYMPHOCYTES % (AUTO) 4.9 % (20.5-51.5); MEAN CORPUSCULAR HEMOGLOBIN 32 pg (27-31); MEAN CORPUSCULAR HGB CONC 34 % (32-36); MEAN CORPUSCULAR VOLUME 95 fL (79.0-98.0); MONOCYTES # (AUTO) 0.8 K/uL (0.0-1.0); MONOCYTES % (AUTO) 5.1 % (1.7-9.3); NEUTROPHILS # (AUTO) 12.9 K/uL (1.8-7.7); NEUTROPHILS % (AUTO) 87.7 % (40.0-70.0); PLATELET COUNT (AUTO) 279 K/uL (130-430); RED BLOOD CELL COUNT(AUTO) 3.73 MIL/uL (4.2-6.2); RED CELL DISTRIBUTION WIDTH 13.5 % (9.0-15.0); WHITE BLOOD COUNT (AUTO) 14.7 K/uL (4.8-10.8)
--- NOTE | 2019-03-21 08:00 | NUR ---
ASSUMPTION OF CARE: RECEIVED PT AWAKE, NON- VERBAL, DX:RISK FOR FLUID VOLUME DEFICIT, R/T RECTAL BLEED, NO S/S OF DISTRESS, RESPONSIVE TO LIGHT TACTILE STIMULI, VSS, AFEBRILE, POSITIONED FOR COMFORT, IV SITE INTACT, PATENT, NO REDNESS OR SWELLING, ORIENTED TO CALL LIGHT PLACED WITHIN REACH, WILL CONT' TO MONITOR AND ASSESS.
[2019-03-21 08:44] LABS: ALBUMIN 2.2 g/dL (3.4-4.8); CALCIUM 7.6 mg/dL (8.4-11.0); CREATININE 0.49 mg/dL (0.55-1.30); POTASSIUM 3.2 mmol/L (3.5-5.1); TOTAL BILIRUBIN 0.3 mg/dL (0.0-1.0)
[2019-03-21] MEDS ORDERED: ENOXAPARIN SODIUM 40 MG/0.4 ML SYRINGE SUBCUT SCH (09:00)
[2019-03-21] MEDS ORDERED: POTASSIUM CHLORIDE 20 MEQ/PKT PACKET PO SCH (09:00)
--- NOTE | 2019-03-21 09:00 | NUR ---
CONTENT CREATION MANAGER: MORNING MEDS GIVEN, PER ORDERED BY Rodolfo, TOLERATED WELL, WILL CONT' TO MONITOR AND ASSESS.
[2019-03-21] MEDS: BACLOFEN 10 MG TABLET GT SCH ×3 (09:55→21:37)
[2019-03-21] MEDS: GABAPENTIN 100 MG CAPSULE GT SCH ×3 (09:55→21:37)
[2019-03-21] MEDS: TAMSULOSIN HCL 0.4 MG CAP PO SCH (09:55)
[2019-03-21] MEDS: TERAZOSIN HCL 5 MG CAPSULE (HYTRIN) GT SCH ×2 (09:56→21:38)
[2019-03-21] MEDS: DOCUSATE SODIUM 100 MG/10 ML UDC GT SCH ×4 (09:56→21:35)
[2019-03-21] MEDS: PHENYTOIN 100 MG/4 ML UDC (DILANTIN) GT SCH ×3 (09:57→21:37)
[2019-03-21] MEDS: MUPIROCIN 2% TOPICAL OINTMENT 22 GM NS SCH ×2 (09:58→21:39)
[2019-03-21] MEDS: ERYTHROMYCIN 0.5% EYE OINT 3.5 GM OP SCH ×2 (09:58→21:40)
[2019-03-21] MEDS: VANCOMYCIN HCL ORAL SOLUTION 250 MG/5 ML, 80 ML GT SCH ×4 (10:04→21:38)
--- NOTE | 2019-03-21 12:00 | NUR ---
NURSES NOTES: PT REPOSITIONED FOR COMFORT, TOLERATING FEEDING WELL, NO RESIDUAL NOTED UPON ASPIRATION OF G-TUBE, HAVING LOOSE STOOLS X2, KAUR REMAINS IN PLACE WITH DARK, YELLOW URINE OUTPUT IN MODERATE AMT, CALL LIGHT PLACED WITHIN REACH, ELEN CONT' TO MONITOR AND ASSESS.
[2019-03-21 12:44] VITALS: BP_SYST 126
[2019-03-21] MEDS: BALSAM PERU/CASTOR OIL 60 GM OINT...G. TP SCH (13:45)
[2019-03-21] MEDS ORDERED: POTASSIUM CHLORIDE 20 MEQ/PKT PACKET GT ONE (14:00)
[2019-03-21 16:23] VITALS: BP_SYST 119
--- NOTE | 2019-03-21 17:27 | NUR ---
Nutrition Assessment (short note d/t high patient load) A - RD reviewed pertinent nutrition-related info via EMR (physician notes/nursing notes/labs/meds/nursing care trends/care activity). Admission Dx: Rectal bleed PMH: aoxic encephalopathy, seizure disorder, drug abuse, brainstem stroke, dysphagia, spastic quadriplegia per physician notes Current Diet Order/Nutrition Support: Vital AF 1.2 at 50 ml/hr, Adrian BID, Free Water Flush: 100 ml q6h via GT x1 day Provides: 1600 kcal/day, 95 gm protein/day, and 1373 ml free water/day Meets: 97% of lower end of estimated caloric needs and 144% of upper end of estimated protein needs Ht: Wt: IBW: %IBW: UBW: %UBW: BMI: Subjective Info: ESTIMATED NUTRITIONAL NEEDS CALORIES/DAY: PROTEIN/DAY: FLUID/DAY: D - Excessive protein intakes related to possible overfeeding as evidenced by current TF regimen exceeds 144% of upper end of estimated protein needs. I - Recommend Jevity 1.5 at 45 ml/hr, Free Water Flush: 100 ml q6h via GT Provides: 1620 kcal/day, 69 gm protein/day, and 1221 ml free water/day Meets: 98% of lower end of estimated caloric needs and 105% of upper end of estimated protein needs M - Monitor tolerance to EN support w/ goal of pt meeting at least 90% of estimated nutritional needs, labs trending WNL, normal GI function, and skin integrity/wt maintenance E - High Risk; RD to F/U within 2-3 days Addendum: 03/21/19 at [address] PLEASE DISREGARD INCOMPLETE NOTE.
--- NOTE | 2019-03-21 17:35 | NUR ---
Dietitian Recommendations * Recommend Jevity 1.5 at 45 ml/hr, Free Water Flush: 100 ml q6h via GT Provides: 1620 kcal/day, 69 gm protein/day, and 1221 ml free water/day Meets: 98% of lower end of estimated caloric needs and 105% of upper end of estimated protein needs LP, RD Please refer to Nutrition Assessment for details.
--- NOTE | 2019-03-21 17:38 | NUR ---
Nutrition Assessment (short note d/t high patient load) A - RD reviewed pertinent nutrition-related info via EMR (physician notes/nursing notes/labs/meds/nursing care trends/care activity). Admission Dx: Rectal bleed PMH: aoxic encephalopathy, seizure disorder, drug abuse, brainstem stroke, dysphagia, spastic quadriplegia per physician notes Current Diet Order/Nutrition Support: Vital AF 1.2 at 50 ml/hr, Adrian BID, Free Water Flush: 100 ml q6h via GT x1 day Provides: 1600 kcal/day, 95 gm protein/day, and 1373 ml free water/day Meets: 97% of lower end of estimated caloric needs and 144% of upper end of estimated protein needs Ht: 66"/5'6" Wt: 145#/66 kg IBW: 142#/65 kg %IBW: 102% UBW: Unknown %UBW: Unknown BMI: 23.4 kg/m2 (normal) Subjective Info: Pt seen high risk for Pietro score: 11, Nutrition Consult for low pietro, and RD Notification for unspecified nutritional problem. Pt was seen sleeping in bed w/ TF Vital AF 1.2 infusing at 50 ml/hr -- 422 ml infused, providing 506 kcal. No family present. Per RN, pt has been tolerating TF welll, no residuals. Pt may be receiving excessive nutrition support and may be at risk of overfeeding syndrome. Per EMR, no pressure ulcers noted. ESTIMATED NUTRITIONAL NEEDS CALORIES/DAY: 9855-7742 kcal/day (25-30 kcal/kg CBW for maintenance) PROTEIN/DAY: 52-66 gm/day (0.8-1 gm/kg CBW for maintenance) FLUID/DAY: 1.7-2 L/day (1 ml/kcal/day for maintenance) D - Excessive protein intakes related to possible overfeeding as evidenced by current TF regimen exceeds 144% of upper end of estimated protein needs. I - Recommend Jevity 1.5 at 45 ml/hr, Free Water Flush: 100 ml q6h via GT Provides: 1620 kcal/day, 69 gm protein/day, and 1221 ml free water/day Meets: 98% of lower end of estimated caloric needs and 105% of upper end of estimated protein needs M - Monitor tolerance to EN support w/ goal of pt meeting at least 90% of estimated nutritional needs, labs trending WNL, normal GI function, and skin integrity/wt maintenance E - High Risk; RD to F/U within 2-3 days
--- NOTE | 2019-03-21 18:00 | NUR ---
END OF SHIFT: PT REMAINS STABLE NO SIGNIFICANT CHANGES NOTED, NEEDS MET, CALL LIGHT PLACED WITHIN REACH, WILL CONT' TO MONITOR, WILL ENDORSE TO INDUSTRIAL STAFF NURSE NURSE.
--- NOTE | 2019-03-21 18:00 | NUR ---
END OF SHIFT: PT REMAINS STABLE NO SIGNIFICANT CHANGES NOTED, NEEDS MET, FAMILY AT BEDSIDE, CALL LIGHT PLACED WITHIN REACH, WILL CONT' TO MONITOR, WILL ENDORSE TO GRADER PATROL NURSE.
--- NOTE | 2019-03-21 18:00 | NUR ---
END OF SHIFT: PT REMAINS STABLE NO SIGNIFICANT CHANGES NOTED, NEEDS MET, FAMILY AT BEDSIDE, CALL LIGHT PLACED WITHIN REACH, WILL CONT' TO MONITOR, WILL ENDORSE TO PIANO MOVER NURSE.
[2019-03-21 20:00] VITALS: BP_SYST 126
[2019-03-21] MEDS: cefTRIAXone 1 GM in D5W 50 ML IV SCH (21:36)
[2019-03-21] MEDS: HEPARIN SODIUM,PORCINE 5000 UNITS/ML VIAL SUBCUT SCH (21:43)
[2019-03-22 00:02] VITALS: BP_SYST 116
[2019-03-22] MEDS: TOBRAMYCIN SULFATE 0.3% EYE DROPS 5 ML OP SCH ×7 (00:12→23:00)
[2019-03-22] MEDS: D5LR 1,000 ML IV SCH ×3 (03:06→19:46)
[2019-03-22] MEDS: IPRATROPIUM/ALBUTEROL SULFATE 3 ML AMPUL.NEB (DUONEB) INH SCH ×6 (03:38→23:30)
[2019-03-22] MEDS: traMADol HCL HCL 50 MG TABLET (ULTRAM) GT SCH ×4 (04:33→22:44)
[2019-03-22] MEDS: metroNIDAZOLE 500 mg/NS 100 ML IV SCH ×3 (04:34→20:48)
[2019-03-22] MEDS: HEPARIN SODIUM,PORCINE 5000 UNITS/ML VIAL SUBCUT SCH ×2 (04:59→13:16)
--- NOTE | 2019-03-22 06:13 | NUR ---
Patient turned repositioned q2. No acute distress noted. HOB elevated. Gtube patent and intact. No residual noted. Will continue to monitor.
[2019-03-22 07:40] LABS: BASOPHILS % (AUTO) 0.2 % (0.0-2.0); EOSINOPHILS # (AUTO) 0.2 K/uL (0.0-0.4); EOSINOPHILS % (AUTO) 2.1 % (0.0-4.0); HEMATOCRIT 33.5 % (36-54); HEMOGLOBIN 11.4 g/dL (14.0-18.0); LYMPHOCYTES % (AUTO) 8.1 % (20.5-51.5); MEAN CORPUSCULAR HEMOGLOBIN 33 pg (27-31); MEAN CORPUSCULAR HGB CONC 34 % (32-36); MEAN CORPUSCULAR VOLUME 95 fL (79.0-98.0); MONOCYTES # (AUTO) 0.7 K/uL (0.0-1.0); MONOCYTES % (AUTO) 5.7 % (1.7-9.3); NEUTROPHILS # (AUTO) 10.2 K/uL (1.8-7.7); NEUTROPHILS % (AUTO) 83.9 % (40.0-70.0); PLATELET COUNT (AUTO) 267 K/uL (130-430); RED BLOOD CELL COUNT(AUTO) 3.51 MIL/uL (4.2-6.2); WHITE BLOOD COUNT (AUTO) 12.1 K/uL (4.8-10.8)
[2019-03-22 07:56] LABS: ALBUMIN 2.1 g/dL (3.4-4.8); CALCIUM 7.5 mg/dL (8.4-11.0); CREATININE 0.36 mg/dL (0.55-1.30); POTASSIUM 3.5 mmol/L (3.5-5.1); TOTAL BILIRUBIN 0.2 mg/dL (0.0-1.0)
[2019-03-22 08:00] VITALS: BP_SYST 129
--- NOTE | 2019-03-22 09:00 | NUR ---
RIM FIRE PRIMING TOOL SETTER: MORNING MEDS GIVEN, PER ORDERED BY Rodolfo, TOLERATED WELL, WILL CONT' TO MONITOR AND ASSESS.
[2019-03-22] MEDS: BACLOFEN 10 MG TABLET GT SCH ×3 (09:40→20:50)
[2019-03-22] MEDS: GABAPENTIN 100 MG CAPSULE GT SCH ×3 (09:40→20:50)
[2019-03-22] MEDS: TAMSULOSIN HCL 0.4 MG CAP PO SCH (09:40)
[2019-03-22] MEDS: POTASSIUM CHLORIDE 20 MEQ/PKT PACKET GT SCH (09:41)
[2019-03-22] MEDS: TERAZOSIN HCL 5 MG CAPSULE (HYTRIN) GT SCH ×2 (09:41→20:50)
[2019-03-22] MEDS: DOCUSATE SODIUM 100 MG/10 ML UDC GT SCH ×2 (09:42→20:50)
[2019-03-22] MEDS: PHENYTOIN 100 MG/4 ML UDC (DILANTIN) GT SCH ×3 (09:42→20:51)
[2019-03-22] MEDS: MUPIROCIN 2% TOPICAL OINTMENT 22 GM NS SCH ×2 (09:43→22:42)
[2019-03-22] MEDS: BALSAM PERU/CASTOR OIL 60 GM OINT...G. TP SCH (09:43)
[2019-03-22] MEDS: ERYTHROMYCIN 0.5% EYE OINT 3.5 GM OP SCH ×2 (09:52→22:43)
[2019-03-22] MEDS: VANCOMYCIN HCL ORAL SOLUTION 250 MG/5 ML, 80 ML GT SCH (09:57)
[2019-03-22 12:00] VITALS: BP_SYST 124
--- NOTE | 2019-03-22 15:00 | NUR ---
NURSES NOTES: STOOL SPECIMEN COLLECTED AND SENT TO LAB, R/O C-DIFF.
[2019-03-22 16:21] VITALS: BP_SYST 131
--- NOTE | 2019-03-22 18:00 | NUR ---
END OF SHIFT: PT REMAINS STABLE NO SIGNIFICANT CHANGES NOTED, NEEDS MET, CALL LIGHT PLACED WITHIN REACH, WILL CONT' TO MONITOR, WILL ENDORSE TO SENIOR ADMINISTRATIVE ASSISTANT NURSE.
[2019-03-22 19:00] VITALS: BP_SYST 108
--- NOTE | 2019-03-22 20:00 | NUR ---
received pt in bed v/s and assessment done same stable pt tomas 5 loose stool cleaned made comfortable ,g tube infusing well ,denis in plave draing dark urine ,iv fluids infusing well ,repositioned .
[2019-03-22] MEDS: cefTRIAXone 1 GM in D5W 50 ML IV SCH (20:48)
[2019-03-22] MEDS: APIXABAN 2.5 MG TABLET PO SCH (20:52)
--- NOTE | 2019-03-23 | NUR ---
pt repositioned made comfortable, cleaned loose watery stoolx2
[2019-03-23 00:06] VITALS: BP_SYST 107
[2019-03-23] MEDS: IPRATROPIUM/ALBUTEROL SULFATE 3 ML AMPUL.NEB (DUONEB) INH SCH ×6 (03:00→23:20)
[2019-03-23 04:00] VITALS: BP_SYST 120
--- NOTE | 2019-03-23 04:00 | NUR ---
pt given am care cleaned loose bm ,made comfortable repositioned no distress noted at this time.
[2019-03-23] MEDS: D5LR 1,000 ML IV SCH ×2 (04:25→06:38)
[2019-03-23] MEDS: TOBRAMYCIN SULFATE 0.3% EYE DROPS 5 ML OP SCH ×5 (04:25→19:35)
[2019-03-23] MEDS: traMADol HCL HCL 50 MG TABLET (ULTRAM) GT SCH ×3 (05:28→18:03)
[2019-03-23] MEDS: metroNIDAZOLE 500 mg/NS 100 ML IV SCH ×3 (05:29→21:08)
[2019-03-23 07:01] LABS: BASOPHILS % (AUTO) 0.4 % (0.0-2.0); EOSINOPHILS # (AUTO) 0.4 K/uL (0.0-0.4); EOSINOPHILS % (AUTO) 4.7 % (0.0-4.0); HEMATOCRIT 31.9 % (36-54); MEAN CORPUSCULAR HEMOGLOBIN 33 pg (27-31); MEAN CORPUSCULAR HGB CONC 34 % (32-36); MEAN CORPUSCULAR VOLUME 95 fL (79.0-98.0); MONOCYTES # (AUTO) 0.5 K/uL (0.0-1.0); MONOCYTES % (AUTO) 6.1 % (1.7-9.3); NEUTROPHILS # (AUTO) 6.5 K/uL (1.8-7.7); NEUTROPHILS % (AUTO) 76.8 % (40.0-70.0); PLATELET COUNT (AUTO) 259 K/uL (130-430); RED BLOOD CELL COUNT(AUTO) 3.35 MIL/uL (4.2-6.2); RED CELL DISTRIBUTION WIDTH 13.7 % (9.0-15.0); WHITE BLOOD COUNT (AUTO) 8.5 K/uL (4.8-10.8)
--- NOTE | 2019-03-23 07:12 | NUR ---
Nutrition Update Pietro Scale 10 noted. Pt admitted for Rectal bleed Diet: Jevity 1.5 at 45ml/hr, FWF 100ml Q6H via GT BMI: 23.4 kg/m2 RD to follow per nutrition care standards.
[2019-03-23 07:41] LABS: CALCIUM 7.5 mg/dL (8.4-11.0); CREATININE 0.29 mg/dL (0.55-1.30); POTASSIUM 3.2 mmol/L (3.5-5.1)
[2019-03-23 07:53] VITALS: BP_SYST 115
--- NOTE | 2019-03-23 07:56 | NUR ---
Patient non verbal , open eyes to verbal stimuli, with good oxygen saturation, oral care given and suction , thin white phlegm , on feeding tube tolerating well . aspiration precaution, will monitor.
[2019-03-23] MEDS: DOCUSATE SODIUM 100 MG/10 ML UDC GT SCH (08:06)
[2019-03-23] MEDS: PHENYTOIN 100 MG/4 ML UDC (DILANTIN) GT SCH ×3 (08:16→21:04)
[2019-03-23] MEDS: TAMSULOSIN HCL 0.4 MG CAP PO SCH (08:16)
[2019-03-23] MEDS: POTASSIUM CHLORIDE 20 MEQ/PKT PACKET GT SCH (08:16)
[2019-03-23] MEDS: BACLOFEN 10 MG TABLET GT SCH ×3 (08:16→21:04)
[2019-03-23] MEDS: GABAPENTIN 100 MG CAPSULE GT SCH ×3 (08:17→21:04)
[2019-03-23] MEDS: APIXABAN 2.5 MG TABLET PO SCH ×2 (08:17→21:10)
[2019-03-23] MEDS: MUPIROCIN 2% TOPICAL OINTMENT 22 GM NS SCH ×2 (08:18→21:29)
[2019-03-23] MEDS: ERYTHROMYCIN 0.5% EYE OINT 3.5 GM OP SCH ×2 (08:18→21:07)
[2019-03-23] MEDS: POTASSIUM CHLORIDE 10 MEQ in 0.45% NACL 1,000 ML IV SCH (11:15)
[2019-03-23] MEDS: BALSAM PERU/CASTOR OIL 60 GM OINT...G. TP SCH (11:36)
--- NOTE | 2019-03-23 11:39 | NUR ---
skin care/comfort Patient awake non verbal had a bowel movement premedicate prior to wound care ,perineal /oral care given, had a loose brown color stool moderate amount , sacral dressing completed, repositioned
[2019-03-23 12:34] VITALS: BP_SYST 123
--- NOTE | 2019-03-23 13:40 | NUR ---
Patient repositioned by staff every 2 hours with pillow support, suctioned secretion by [place] white thin phlegm, aspiration precaution.
--- NOTE | 2019-03-23 15:00 | NUR ---
Due meds given via Gtube no residual , kept HOB semi fowlers, eye care given prior to eyedrops medication.
[2019-03-23 15:01] LABS: BILIRUBIN,URINE NEGATIVE (NEGATIVE); BLOOD, URINE 3+ (NEGATIVE); CLARITY/URINE SL CLOUDY (CLEAR); COLOR,URINE YELLOW (YELLOW); GLUCOSE,URINE NEGATIVE (NEGATIVE); KETONES,URINE NEGATIVE (NEGATIVE); LEUKOCYTE ESTERASE ,URINE NEGATIVE (NEGATIVE); NITRITE, URINE NEGATIVE (NEGATIVE); PROTEIN URINE NEGATIVE (NEGATIVE); UROBILINOGEN,URINE 0.2 (0.2-1.0)
[2019-03-23] MEDS: TERAZOSIN HCL 5 MG CAPSULE (HYTRIN) GT SCH ×2 (15:04→21:07)
[2019-03-23 15:21] LABS: BACTERIA,URINE RARE /HPF (None Seen); RBC,URINE 50-80 /HPF (0-3); WBC,URINE 0-3 /HPF (0-3)
[2019-03-23 15:22] LABS: MUCUS,URINE 1+ /LPF (None Seen)
[2019-03-23 16:20] VITALS: BP_SYST 124
--- NOTE | 2019-03-23 16:44 | NUR ---
Skin care/comfort Perineal/oral care given , sacral dressing dry/intact ,Patient repositioned by staff every 2 hours with pillow support.
--- NOTE | 2019-03-23 18:32 | NUR ---
P.T. NOTES P.T. EVAL COMPLETED; NON AMBULATORY; UNABLE TO FF SIMPLE COMMANDS; NURSING MAY PERFORM PROM UE/LE ONCE DAILY/ NINFA WITHIN AVAILABLE RANGE INCORPORATED W/ ADLs. Addendum: 03/23/19 at 1833 by Crystal Nina PT Amended: Links added.
[2019-03-23] MEDS ORDERED: LOPERAMIDE HCL 2 MG CAPSULE GT PRN (19:00)
--- NOTE | 2019-03-23 19:25 | NUR ---
CHANGE OF SHIFT; pt. awake, non verbal, on high fowlers position.on contact isolation for MRSA nares. O2 on, g tube feed. will reassess alter. no acute distress.
[2019-03-23] MEDS: cefTRIAXone 1 GM in D5W 50 ML IV SCH (19:50)
[2019-03-23 20:00] VITALS: BP_SYST 114
--- NOTE | 2019-03-23 20:00 | NUR ---
NOTES: VS checked. due IV antibiotic started. IV site on rt. forearm , !/2NS with 20 meqkcl @ 60 cc/hr. rt. IV on left hand , IV lock, appears quite swollen. pt. unable to move extremities. both hands fairly contracted. opens eyes on stimulation but does not follow commands. rt. eye still red, on eye ointment and eye drops as schedule. on 2l/nc, occ. bouts of non productive cough, suction prn. G tube feed continuous @ 45 cc/hr. with Vital, checked with 20 cc residual. sacral foam dressing intact.both feet with foot drop, keep elevated with 2 pillows. denis cath to osd. cardiac pattern on borderline sinus bradycardia and sinus rhythm.
--- NOTE | 2019-03-23 21:30 | NUR ---
NOTES: complete hs care done, meri/oral care done. repositioned.
--- NOTE | 2019-03-23 22:00 | NUR ---
NOTES: due medications given per g tube, IV antibiotic due given as scheduled. on seizure precautions.
[2019-03-24 00:02] VITALS: BP_SYST 132
[2019-03-24] MEDS: TOBRAMYCIN SULFATE 0.3% EYE DROPS 5 ML OP SCH ×7 (00:08→23:11)
[2019-03-24] MEDS: traMADol HCL HCL 50 MG TABLET (ULTRAM) GT SCH ×5 (00:10→23:54)
--- NOTE | 2019-03-24 00:15 | NUR ---
NOTES: pt. sander Yanez came at bedside to visit for short period of time. due eyedrop given and medication. repositioned. continuous g tube feeding. IVF patent. condition observed.
--- NOTE | 2019-03-24 02:31 | NUR ---
NOTES: condition unchanged. continue to monitor. cardiac pattern sinus nicol borderline sinus rhythm. observed contact isolation.
[2019-03-24] MEDS: IPRATROPIUM/ALBUTEROL SULFATE 3 ML AMPUL.NEB (DUONEB) INH SCH ×6 (02:40→23:20)
[2019-03-24] MEDS: POTASSIUM CHLORIDE 10 MEQ in 0.45% NACL 1,000 ML IV SCH (03:00)
--- NOTE | 2019-03-24 04:30 | NUR ---
NOTES: repositioned. suctioned orally. IV site patent. continue to observe. no bowel movement, denis cath intact with alisa yellow urine output. seizure precautions.
[2019-03-24] MEDS: metroNIDAZOLE 500 mg/NS 100 ML IV SCH ×3 (05:08→21:46)
--- NOTE | 2019-03-24 06:00 | NUR ---
NOTES: pt. eyes closed, sleeping, no distress. kept O2 @ 2l/nc. ,HOB elevated. sacral dressing intact. kep bilateral legs/feet elevated with 2 pillows. repositioned. on seizure and fall risk. continue to observe contact isolation for MRSA nares.
--- NOTE | 2019-03-24 06:40 | NUR ---
CLOSING NOTES: CXR done at bedside. for further care and assist. observe contact isolation for MRSA nares. kept HOB elevated. IV patent on rt. arm. g tube continuous, changed to Jevity @ 45 cc/hr. due eye drops given as scheduled. due med per g tube. on seizure precautions. will endorse to day shift nurse.
[2019-03-24 07:44] LABS: BASOPHILS % (AUTO) 0.5 % (0.0-2.0); EOSINOPHILS # (AUTO) 0.4 K/uL (0.0-0.4); EOSINOPHILS % (AUTO) 5.2 % (0.0-4.0); HEMOGLOBIN 11.9 g/dL (14.0-18.0); LYMPHOCYTES # (AUTO) 1.2 K/uL (1.0-5.5); LYMPHOCYTES % (AUTO) 14.5 % (20.5-51.5); MEAN CORPUSCULAR HEMOGLOBIN 32 pg (27-31); MEAN CORPUSCULAR HGB CONC 34 % (32-36); MEAN CORPUSCULAR VOLUME 94 fL (79.0-98.0); MONOCYTES # (AUTO) 0.5 K/uL (0.0-1.0); MONOCYTES % (AUTO) 6.2 % (1.7-9.3); NEUTROPHILS # (AUTO) 6.1 K/uL (1.8-7.7); NEUTROPHILS % (AUTO) 73.6 % (40.0-70.0); PLATELET COUNT (AUTO) 296 K/uL (130-430); RED BLOOD CELL COUNT(AUTO) 3.71 MIL/uL (4.2-6.2); RED CELL DISTRIBUTION WIDTH 13.5 % (9.0-15.0); WHITE BLOOD COUNT (AUTO) 8.4 K/uL (4.8-10.8)
[2019-03-24 07:53] LABS: CALCIUM 7.6 mg/dL (8.4-11.0); CREATININE 0.3 mg/dL (0.55-1.30); POTASSIUM 3.7 mmol/L (3.5-5.1)
[2019-03-24 08:00] VITALS: BP_SYST 126
--- NOTE | 2019-03-24 08:00 | NUR ---
Initial notes- In bed, awake, non verbal, does not follow commands. on o2 2l, tolerating well. repositioned, oral care done. Tolerating GT feeding, no residual noted. maintain on contact isolation. will continue to monitor.
[2019-03-24] MEDS: PHENYTOIN 100 MG/4 ML UDC (DILANTIN) GT SCH ×3 (08:26→20:49)
[2019-03-24] MEDS: ERYTHROMYCIN 0.5% EYE OINT 3.5 GM OP SCH ×2 (08:27→20:49)
[2019-03-24] MEDS: TERAZOSIN HCL 5 MG CAPSULE (HYTRIN) GT SCH ×2 (08:27→20:47)
[2019-03-24] MEDS: POTASSIUM CHLORIDE 20 MEQ/PKT PACKET GT SCH (08:27)
[2019-03-24] MEDS: TAMSULOSIN HCL 0.4 MG CAP PO SCH (08:27)
[2019-03-24] MEDS: GABAPENTIN 100 MG CAPSULE GT SCH ×3 (08:28→20:49)
[2019-03-24] MEDS: BACLOFEN 10 MG TABLET GT SCH ×3 (08:28→20:44)
[2019-03-24] MEDS: BALSAM PERU/CASTOR OIL 60 GM OINT...G. TP SCH (08:28)
[2019-03-24] MEDS: MUPIROCIN 2% TOPICAL OINTMENT 22 GM NS SCH ×2 (08:29→21:49)
[2019-03-24] MEDS: APIXABAN 2.5 MG TABLET PO SCH ×2 (08:33→20:50)
--- NOTE | 2019-03-24 09:00 | NUR ---
family- model engine mechanic called family re: if they agree to do colonoscopy/egd per GI, left messages on the voicemail.
--- NOTE | 2019-03-24 10:41 | NUR ---
notes- has semi soft stool. cleaned patient and do wound care. Repositioned for comfort.
[2019-03-24 12:15] VITALS: BP_SYST 117
--- NOTE | 2019-03-24 12:30 | NUR ---
Notes- In bed, No acute distress noted. turned and repositioned. oral care done.
--- NOTE | 2019-03-24 14:47 | NUR ---
Notes- Turn and repositioned, Seen by Dr. Arita and Dr. Steve at bedside. no acute distress noted.
[2019-03-24 16:18] VITALS: BP_SYST 121
[2019-03-24] MEDS: D5/0.45 NS 1,000 ML IV SCH (16:40)
--- NOTE | 2019-03-24 16:57 | NUR ---
Discharge Planning: DCP faxed pt referral to [facility] (f [phone] p [phone]) DCP follow up
--- NOTE | 2019-03-24 17:00 | NUR ---
Pt is not accepted to [facility] because of the insurance.
--- NOTE | 2019-03-24 18:33 | NUR ---
Notes- repositioned, tolerating feeding. IVF infusing well. no acute distress noted. Will endorse
--- NOTE | 2019-03-24 19:10 | NUR ---
CHANGE OF SHIFT; pt. resting, non verbal. on contact isolation for MRSA nares. O2 on @ 2l/nc. HOB elevated. will reassess later. on seizure precautions. unable to use call light, on frequent rounds.
[2019-03-24 20:30] VITALS: BP_SYST 125
[2019-03-24] MEDS: cefTRIAXone 1 GM in D5W 50 ML IV SCH (20:41)
--- NOTE | 2019-03-24 21:00 | NUR ---
NOTES: complete hs care done, includes meri and oral care. repositioned. pt. girlfriend at bedside and answer all her questions. HOB kept elevated. on contact isolation for MRSA nares. Addendum: 03/24/19 at 2141 by Darlyn Enriquez RN pt. had large amts. of pasty brown stool, no signs of bleeding.
[2019-03-24] MEDS ORDERED: FLU VACC QS2019-20 36MOS UP/PF 60 MCG/0.5 ML SYRINGE I.M. PRN (21:15)
--- NOTE | 2019-03-24 21:55 | NUR ---
NOTES: pt. girlfriend remain at bedside, asking to give pt. something for pain, noted to have a headache, schedule pain med not due yet, Tylenol per g tube given. asked girlfriend for flu shot for pt. and agreed, will give later before the end of the shift,charge nurse Kaye aware.
--- NOTE | 2019-03-24 23:00 | NUR ---
NOTES: pt. sleeping when checked and girlfriend ready to leave. condition observed.
--- NOTE | 2019-03-24 23:20 | NUR ---
NOTES: RT here, breathing treatment given.
--- NOTE | 2019-03-25 00:30 | NUR ---
NOTES: pt. condition unchanged. repositioned. due med given for pain. G tube continuous, free H2O given as scheduled. IVF patent.
[2019-03-25 00:36] VITALS: BP_SYST 119
--- NOTE | 2019-03-25 02:30 | NUR ---
NOTES: continue to monitor. observed contact isolation for MRSA nares.pt. sleeping with eyes closed. appears comfortable.
[2019-03-25] MEDS: IPRATROPIUM/ALBUTEROL SULFATE 3 ML AMPUL.NEB (DUONEB) INH SCH ×6 (03:41→23:51)
[2019-03-25] MEDS: TOBRAMYCIN SULFATE 0.3% EYE DROPS 5 ML OP SCH ×6 (03:44→23:31)
--- NOTE | 2019-03-25 04:00 | NUR ---
NOTES: repositioned. no bm, sacral dressing intact. RT at bedside for breathing treatment. oral care done. condition guarded.
[2019-03-25] MEDS: metroNIDAZOLE 500 mg/NS 100 ML IV SCH ×3 (05:47→22:33)
[2019-03-25] MEDS: traMADol HCL HCL 50 MG TABLET (ULTRAM) GT SCH ×4 (06:08→23:32)
--- NOTE | 2019-03-25 08:00 | NUR ---
RECEIVED AWAKE AND IN NO DISTRESS resp even and unlabored 02 at 2l nc.repositioned in bed tube fdg infusing at 45hr.seen by dr chowdhury who wants to start on hep drip.tele sr vss.continue to monitor
[2019-03-25] MEDS: TAMSULOSIN HCL 0.4 MG CAP PO SCH (08:23)
[2019-03-25] MEDS: TERAZOSIN HCL 5 MG CAPSULE (HYTRIN) GT SCH ×2 (08:24→22:31)
[2019-03-25] MEDS: GABAPENTIN 100 MG CAPSULE GT SCH ×3 (08:24→22:32)
[2019-03-25] MEDS: ERYTHROMYCIN 0.5% EYE OINT 3.5 GM OP SCH ×2 (08:25→22:32)
[2019-03-25] MEDS: BACLOFEN 10 MG TABLET GT SCH ×3 (08:25→22:32)
[2019-03-25] MEDS: POTASSIUM CHLORIDE 20 MEQ/PKT PACKET GT SCH (08:25)
[2019-03-25] MEDS: PHENYTOIN 100 MG/4 ML UDC (DILANTIN) GT SCH ×3 (08:26→22:32)
[2019-03-25] MEDS: BALSAM PERU/CASTOR OIL 60 GM OINT...G. TP SCH (09:00)
[2019-03-25] MEDS: MUPIROCIN 2% TOPICAL OINTMENT 22 GM NS SCH (09:00)
[2019-03-25] MEDS ORDERED: *HEPARIN PER PHARMACY XX PRN (10:00)
[2019-03-25] MEDS ORDERED: HEPARIN SODIUM,PORCINE 5000 UNITS/ML VIAL IV ONE (10:15)
[2019-03-25] MEDS ORDERED: HEPARIN SODIUM,PORCINE 2000 UNITS/0.4 ML BOLUS IVP PRN (10:15)
[2019-03-25] MEDS ORDERED: HEPARIN SODIUM,PORCINE 3000 UNITS/0.6 ML BOLUS IVP PRN (10:15)
[2019-03-25 11:41] VITALS: BP_SYST 137
[2019-03-25] MEDS: HEPARIN 25,000 UNITS/D5W 250ML 250 ML IV PRN ×2 (12:24→23:02)
--- NOTE | 2019-03-25 12:30 | NUR ---
heparin drip started per protocol and next ptt ordered for 0.continue to monitor.
[2019-03-25] MEDS: D5/0.45 NS 1,000 ML IV SCH ×2 (14:45→22:33)
--- NOTE | 2019-03-25 15:51 | NUR ---
Nutrition F/U A - RD reviewed pertinent nutrition-related info via EMR (physician notes/nursing notes/labs/meds/nursing care trends/care activity). Admission Dx: Rectal bleed PMH: anoxic encephalopathy, seizure disorder, drug abuse, brainstem stroke, dysphagia, spastic quadriplegia per physician notes Current Diet Order/Nutrition Support: Jevity 1.5 at 45 ml/hr, Free Water Flush: 100 ml q6h via GT x3 days Ht: 66"/5'6" Wt: 145#/66 kg -- no changes IBW: 142#/65 kg %IBW: 102% UBW: Unknown %UBW: Unknown BMI: 23.4 kg/m2 (normal) Pertinent Medical Info: Colonoscopy pending per physician notes Subjective Info: Pt was seen resting in bed, awake but non-verbal, and TF infusing as per physician order. Per EMR, pt has been tolerating TF well. Current TF regimen remains adequate/appropriate. ESTIMATED NUTRITIONAL NEEDS CALORIES/DAY: 6626-4937 kcal/day (25-30 kcal/kg CBW for maintenance) PROTEIN/DAY: 52-66 gm/day (0.8-1 gm/kg CBW for maintenance) FLUID/DAY: 1.7-2 L/day (1 ml/kcal/day for maintenance) D - Excessive protein intakes related to possible overfeeding as evidenced by current TF regimen exceeds 144% of upper end of estimated protein needs. (*no longer applicable) I - Recommend continuing Jevity 1.5 at 45 ml/hr, Free Water Flush: 100 ml q6h via GT Provides: 1620 kcal/day, 69 gm protein/day, and 1221 ml free water/day Meets: 98% of lower end of estimated caloric needs and 105% of upper end of estimated protein needs M - Monitor tolerance to EN support w/ goal of pt meeting at least 90% of estimated nutritional needs, labs trending WNL, normal GI function, and skin integrity/wt maintenance E - Moderate Risk; RD to F/U within 3-5 days
--- NOTE | 2019-03-25 15:56 | NUR ---
Dietitian Recommendations * Recommend continuing Jevity 1.5 at 45 ml/hr, Free Water Flush: 100 ml q6h via GT Provides: 1620 kcal/day, 69 gm protein/day, and 1221 ml free water/day Meets: 98% of lower end of estimated caloric needs and 105% of upper end of estimated protein needs LP, RD Please refer to Nutrition F/U for details.
[2019-03-25 15:58] VITALS: BP_SYST 125
--- NOTE | 2019-03-25 18:14 | NUR ---
repositioned q2h and no signs of distress noted vss.tube feeding remains infusing and heparin drip also.meds given through g tube.continue to monitor
--- NOTE | 2019-03-25 19:20 | NUR ---
REPORT GIVEN TO ARIE POLLOCK RN
[2019-03-25 20:00] VITALS: BP_SYST 138
--- NOTE | 2019-03-25 20:00 | NUR ---
OPENS EYES SPON. DOES NOT FOLLOW COMMANDS. ON O2 AT 2L/MIN/NC. ON GT FEEDING WITH JEVITY AT 45CC/HR. RESIDUAL CHECK 10CC. KAUR CATH PATENT DRAINING CLEAR FROYLAN URINE TO GRAVITY. ON HEPARIN DRIP AT 800 UNITS/HR. SINUS RHYTHM. CONTACT ISOLATION OBSERVED.
[2019-03-25] MEDS: cefTRIAXone 1 GM in D5W 50 ML IV SCH (20:10)
--- NOTE | 2019-03-25 23:00 | NUR ---
PTT 29.3 SECS. , HEPARIN DRIP INCREASED TO 1000 UNITS/HR AND 3000 UNITS HEPARIN IVP GIVEN PER PROTOCOL.
--- NOTE | 2019-03-26 | NUR ---
GT FLUSHED WITH 100CC H2O.
[2019-03-26 02:31] VITALS: BP_SYST 105
[2019-03-26] MEDS: TOBRAMYCIN SULFATE 0.3% EYE DROPS 5 ML OP SCH ×6 (03:00→21:02)
[2019-03-26] MEDS: IPRATROPIUM/ALBUTEROL SULFATE 3 ML AMPUL.NEB (DUONEB) INH SCH ×5 (03:48→20:38)
--- NOTE | 2019-03-26 04:00 | NUR ---
[facility].
[2019-03-26] MEDS: metroNIDAZOLE 500 mg/NS 100 ML IV SCH ×3 (05:26→21:01)
[2019-03-26] MEDS: traMADol HCL HCL 50 MG TABLET (ULTRAM) GT SCH ×3 (05:27→17:56)
--- NOTE | 2019-03-26 06:00 | NUR ---
SLEPT WELL MOST OF NOC. UO GOOD. REMAINS IN GUARDED CONDITION.
[2019-03-26 06:21] LABS: BASOPHILS # (AUTO) 0.1 K/uL (0.0-0.2); BASOPHILS % (AUTO) 0.6 % (0.0-2.0); EOSINOPHILS # (AUTO) 0.4 K/uL (0.0-0.4); EOSINOPHILS % (AUTO) 2.4 % (0.0-4.0); HEMATOCRIT 38.6 % (36-54); HEMOGLOBIN 13.1 g/dL (14.0-18.0); LYMPHOCYTES # (AUTO) 1.9 K/uL (1.0-5.5); LYMPHOCYTES % (AUTO) 12.2 % (20.5-51.5); MEAN CORPUSCULAR HEMOGLOBIN 32 pg (27-31); MEAN CORPUSCULAR HGB CONC 34 % (32-36); MEAN CORPUSCULAR VOLUME 93 fL (79.0-98.0); MONOCYTES # (AUTO) 0.9 K/uL (0.0-1.0); MONOCYTES % (AUTO) 5.9 % (1.7-9.3); NEUTROPHILS # (AUTO) 12.6 K/uL (1.8-7.7); NEUTROPHILS % (AUTO) 78.9 % (40.0-70.0); PLATELET COUNT (AUTO) 395 K/uL (130-430); RED BLOOD CELL COUNT(AUTO) 4.14 MIL/uL (4.2-6.2); RED CELL DISTRIBUTION WIDTH 13.4 % (9.0-15.0)
[2019-03-26 06:30] LABS: WHITE BLOOD COUNT (AUTO) 15.9 K/uL (4.8-10.8)
[2019-03-26 06:33] LABS: ALBUMIN 2.2 g/dL (3.4-4.8); CALCIUM 7.8 mg/dL (8.4-11.0); CREATININE 0.39 mg/dL (0.55-1.30); POTASSIUM 3.4 mmol/L (3.5-5.1); TOTAL BILIRUBIN 0.1 mg/dL (0.0-1.0)
[2019-03-26] MEDS: HEPARIN 25,000 UNITS/D5W 250ML 250 ML IV PRN ×3 (07:20→14:59)
--- NOTE | 2019-03-26 07:20 | NUR ---
opening note patient is resting in bed, watching tv, patient is nonverbal, educated process control programmer light system and plan of care, patient has two IV sites and dressings are intact and secured with IVF running and patient is tolerating well, patient has own cane at the bedside, no signs of distress at this time, no other needs addressed at this time, brake armed, bed in lowest position, two side rails up, call light within reach, bed alarm on, fall/safety and aspiration and contact and seizure precautions in place, with assist from overnight houseperson nurse, heparin drip rate was changed to 1100 units/hr per protocol, denis in place, tube feeding running and patient tolerating well. Addendum: 03/26/19 at 1840 by Natalie Pink RN ENTERED IN ERROR ABOUT PATIENT HAVING CANE
[2019-03-26 08:00] VITALS: BP_SYST 152
[2019-03-26] MEDS: BALSAM PERU/CASTOR OIL 60 GM OINT...G. TP SCH (08:37)
[2019-03-26] MEDS: ERYTHROMYCIN 0.5% EYE OINT 3.5 GM OP SCH ×2 (08:37→21:06)
[2019-03-26] MEDS: PHENYTOIN 100 MG/4 ML UDC (DILANTIN) GT SCH ×3 (08:37→21:00)
[2019-03-26] MEDS: TAMSULOSIN HCL 0.4 MG CAP PO SCH (08:38)
[2019-03-26] MEDS: TERAZOSIN HCL 5 MG CAPSULE (HYTRIN) GT SCH ×2 (08:38→21:05)
[2019-03-26] MEDS: POTASSIUM CHLORIDE 20 MEQ/PKT PACKET GT SCH ×2 (08:38→21:03)
[2019-03-26] MEDS: BACLOFEN 10 MG TABLET GT SCH ×3 (08:38→21:01)
[2019-03-26] MEDS: GABAPENTIN 100 MG CAPSULE GT SCH ×3 (08:38→21:01)
[2019-03-26] MEDS ORDERED: MAGNESIUM CITRATE 300 ML ORAL SOLUTION GT ONE (10:00)
[2019-03-26 10:23] VITALS: BP_SYST 105
--- NOTE | 2019-03-26 10:50 | NUR ---
rounds patient is resting in bed, eyes closed breathing easy and nonlabored, RT in room for breathing treatment, no signs of distress at this time, fall/safety seizure and contact precautions in place.
[2019-03-26 12:09] VITALS: BP_SYST 116
--- NOTE | 2019-03-26 12:15 | NUR ---
rounds patient is resting in bed, eyes closed breathing easy and nonlabored, spoke to the son Beau on the phone to get consent for colonoscopy for tomorrow AM, no signs of distress at this time, no other needs addressed at this time, tube feeding is held per Dr Lund, heparin drip will be stopped tomorrow AM at 0400.
--- NOTE | 2019-03-26 14:30 | NUR ---
wound care wound care was done with wound care nurse, wound care done per orders, patient tolerated well, no signs of distress at this time, repositioned, no other needs addressed at this time, fall/safety, seizure, and contact precautions in place.
--- NOTE | 2019-03-26 14:30 | NUR ---
WOUND RE-EVALUATION: Late note for 1430 secondary to patient care. Patient received in a Jorge A Bed with an IsoFlex UMA mattress with low air loss therapy, obtunded. Patient is unable to turn in bed independently. Pietro Score is an 11. Past Medical History: Seizure, Stroke on anticoagulation brought in by EMS for rectal bleed and hypoxia, anoxic encephalopathy, respiratory failure, tracheostomy, dysphagia, G-tube feeding, hypertension, seizure disorder, CVA, DVT, spastic quadriplegia, left arm surgery, no other history known. Microbiology: Blood culture results x2 negative. Intrinsic factors that delay wound healing: Hypoalbuminemia. Extrinsic factors that delay wound healing: Immobility. Wound Assessment: 1. Left buttock: Stage III pressure ulcer, present on admission. Wound bed has 100% pink tissue. No odor, no drainage. Periwound intact. Surrounding tissue has dark discoloration. Wound measures 6.9 cm x 4.5 cm. 2. Right buttock: Stage 2 pressure ulcer, present on admission. Wound bed has 90% pink tissue, 10% black scab (some came off easily with cleansing). No odor, no drainage. Periwound intact. Surrounding tissue has dark discoloration. Wound measures 7.5 cm x 5.0 cm. Recommend continue: Cleanse wounds with normal saline. Apply moisture barrier cream to meri-wounds. Apply Venelex ointment to wound beds. Cover with sacral foam dressing. Perform wound care daily, and as needed for dressing soiling or dislodgment. 3. Right lateral hip: Scar tissue, present on admission. Recommend continue: Cleanse site with normal saline. Gently pat dry. Apply moisture barrier cream to site. Cover with foam dressing. Perform site care daily, and as needed for dressing soiling or dislodgment. 4. Left heel: Blanchable red erythema, present on admission. 5. Right heel: Blanchable red erythema, present on admission. Recommend continue: Elevate, offload and float bilateral heels with one pillow lengthwise under each extremity at all times. 6. Left elbow: Scar tissue, present on admission. Recommend continue: Elevate, offload and flow involved area at all times. Also recommend continue: Reposition patient [id number] only every 2 hours with pillow support, and off-load pressure areas with pillows for pressure re-distribution. Elevate, offload and float bilateral heels with one pillow lengthwise under each extremity at all times. Keep bilateral heels in Heelift boots. Perform skin care and monitor skin integrity Q shift. Use moisture barrier cream on buttocks and other moisture susceptible areas QID and as needed for soiling. Maintain patient on a low air-loss mattress.
[2019-03-26 16:00] VITALS: BP_SYST 106
--- NOTE | 2019-03-26 16:32 | NUR ---
rounds patient resting in bed, eyes opened, breathing easy and nonlabored, on 2L nasal cannula, no signs of distress at this time, IV lines changed, no other needs at this time, fall/safety, contact, and seizure precautions in place.
[2019-03-26] MEDS ORDERED: GOLYTELY / COLYTE SOLUTION 4 LITERS PO ONE (18:00)
--- NOTE | 2019-03-26 18:30 | NUR ---
closing note patient is resting in bed, patient is nonverbal but opens eyes, patient has two IV sites and dressings are intact and secured with IVF running and patient is tolerating well, no signs of distress at this time, no other needs addressed at this time, brake armed, bed in lowest position, side rails up, call light within reach, bed alarm on, fall/safety and aspiration and contact and seizure precautions in place, heparin drip at 1200 units/hr per protocol, denis in place, tube feeding running and patient tolerating well, will endorse report to [facility] shift nurse to continue with care. next PPT draw is at 2100, NPO after midnight for colonoscopy, heparin drip to stop at 0400 03/27/2019.
[2019-03-26] MEDS: cefTRIAXone 1 GM in D5W 50 ML IV SCH (20:54)
--- NOTE | 2019-03-26 21:00 | NUR ---
PT RECIEVED ALERT AND ORIENTED X4 , PT MONITORED WITH SINUS RYTHM . PT ON HEPARIN DRIP 1200UNIT.HR
--- NOTE | 2019-03-26 21:00 | NUR ---
PT ON IV D51/2NS AT 40CC/HR . PT IS WEAK FROM THECOLONOSCOPY PREP THAT PT IS GETTING , PT HAS G- TUBE . PT IS NOT GETTING ANY FEEDING PT HAS A KAUR CATHETHER WITH FROYLAN URINE . PT APHASIC EXTREMITIES CONTACTED.
--- NOTE | 2019-03-27 | NUR ---
PTHAS BEEN GETTING GOLETLY . PT NPO NOW . FOR COLONOSCPY IN AM PT COLTINUED ON HEPARIN DRIP AT 1200U/HR . CONSENT FOR COLONOSCOPY SIGNED .WILL CONTINUE TO NONITOR PT .
--- NOTE | 2019-03-27 00:20 | NUR ---
Rounds: Scheduled Ultram administered per MD order, patient tolerated well, no gastric residual before medication administration. G-tube flush of 200 ML sterile water administered. Patient tolerating 2L NC, IV fluids infusing as ordered with no infiltration at IV site, tubefeeding in place per MD order, denis draining well to gravity. All precautions remain in place. Call light with patient. Will continue to monitor. Addendum: 03/28/19 at 0157 by Chris Cormier RN Please disregard, incorrect date.
[2019-03-27] MEDS: IPRATROPIUM/ALBUTEROL SULFATE 3 ML AMPUL.NEB (DUONEB) INH SCH ×5 (00:21→23:58)
[2019-03-27 00:25] VITALS: BP_SYST 132
[2019-03-27] MEDS: traMADol HCL HCL 50 MG TABLET (ULTRAM) GT SCH ×5 (01:00→18:35)
[2019-03-27] MEDS: TOBRAMYCIN SULFATE 0.3% EYE DROPS 5 ML OP SCH ×5 (03:00→20:23)
--- NOTE | 2019-03-27 03:30 | NUR ---
PT HEART RATE DRIPED TO 49/MIN. V/S 133/79 . BS CHECKED BS 93 . PT HEART RATE CAME BACK TO 102 IMMEDIATELY AFTER WAKING PT UP. PT ON SINUS RYTHM .
[2019-03-27 06:36] LABS: BASOPHILS # (AUTO) 0.1 K/uL (0.0-0.2); BASOPHILS % (AUTO) 1.2 % (0.0-2.0); EOSINOPHILS # (AUTO) 0.4 K/uL (0.0-0.4); EOSINOPHILS % (AUTO) 3.9 % (0.0-4.0); HEMOGLOBIN 13.2 g/dL (14.0-18.0); LYMPHOCYTES # (AUTO) 1.7 K/uL (1.0-5.5); LYMPHOCYTES % (AUTO) 18.3 % (20.5-51.5); MEAN CORPUSCULAR HEMOGLOBIN 32 pg (27-31); MEAN CORPUSCULAR HGB CONC 34 % (32-36); MEAN CORPUSCULAR VOLUME 95 fL (79.0-98.0); MONOCYTES # (AUTO) 0.9 K/uL (0.0-1.0); MONOCYTES % (AUTO) 9.1 % (1.7-9.3); NEUTROPHILS # (AUTO) 6.4 K/uL (1.8-7.7); NEUTROPHILS % (AUTO) 67.5 % (40.0-70.0); PLATELET COUNT (AUTO) 382 K/uL (130-430); RED BLOOD CELL COUNT(AUTO) 4.09 MIL/uL (4.2-6.2); WHITE BLOOD COUNT (AUTO) 9.5 K/uL (4.8-10.8)
[2019-03-27] MEDS: metroNIDAZOLE 500 mg/NS 100 ML IV SCH ×3 (06:50→21:43)
[2019-03-27 06:59] LABS: CALCIUM 8.2 mg/dL (8.4-11.0); CREATININE 0.34 mg/dL (0.55-1.30); POTASSIUM 3.8 mmol/L (3.5-5.1)
[2019-03-27] MEDS ORDERED: MEPERIDINE HCL/PF 25 MG/ML DISP.SYRIN ONE ×2 (07:36→07:37)
[2019-03-27] MEDS ORDERED: MIDAZOLAM HCL 5 MG/5 ML VIAL ONE (07:36)
[2019-03-27] MEDS ORDERED: SIMETHICONE 40 MG/0.6 ML ML ONE (07:37)
--- NOTE | 2019-03-27 07:50 | NUR ---
AM REPORT ENDORSEMENT Received report from overnight cashier RN. Patient off the unit to GI station since 734 for scheduled colonoscopy.
[2019-03-27 09:45] VITALS: BP_SYST 131
--- NOTE | 2019-03-27 09:50 | NUR ---
RECEIVED REPORT FROM JASMIN TERAN RN. S/P COLONOSCOPY PATIENT WAS GIVEN VERSED 1MG, DEMEROL 25 MG IVP, POST PROCEDURE DX SIGMOID COLON COLITIS, HEMORRHOIDS, PATIENT W/ POSITIVE FLATUS POST PROCEDURE. VS DONE, WNL- T 97.6, P67, BP 136/84, SR, PO2 97% ON 2L N/C.
[2019-03-27] MEDS: GABAPENTIN 100 MG CAPSULE GT SCH ×3 (10:48→21:43)
[2019-03-27] MEDS: BACLOFEN 10 MG TABLET GT SCH ×3 (10:49→21:42)
[2019-03-27] MEDS: TAMSULOSIN HCL 0.4 MG CAP PO SCH (10:50)
[2019-03-27] MEDS: PHENYTOIN 100 MG/4 ML UDC (DILANTIN) GT SCH ×3 (10:50→21:43)
[2019-03-27] MEDS: POTASSIUM CHLORIDE 20 MEQ/PKT PACKET GT SCH ×2 (10:51→21:42)
[2019-03-27] MEDS: BALSAM PERU/CASTOR OIL 60 GM OINT...G. TP SCH (10:52)
[2019-03-27] MEDS: TERAZOSIN HCL 5 MG CAPSULE (HYTRIN) GT SCH ×2 (10:59→21:43)
[2019-03-27] MEDS: ERYTHROMYCIN 0.5% EYE OINT 3.5 GM OP SCH ×2 (11:13→21:49)
--- NOTE | 2019-03-27 12:30 | NUR ---
PATIENT ASLEEP AT INTERVALS, NGT W/ POS FLUID BY GRAVITY, PATIENT TOLERATED WELL. IN ROOM MONITORING, STABLE, NAD, ON CONTINUOS PULSE OX MONITORING. TURNED , AND COMFORT MEASURES APPLIED.
[2019-03-27 12:54] VITALS: BP_SYST 146
[2019-03-27] MEDS: D5/0.45 NS 1,000 ML IV SCH (13:06)
--- NOTE | 2019-03-27 15:00 | NUR ---
NO CHANGE IN PATIENT STATUS. PATIENT ASLEEP AT INTERVALS, NGT W/ POS FLUID BY GRAVITY, PATIENT TOLERATED WELL. IN ROOM MONITORING, STABLE, NAD, ON CONTINUOS PULSE OX MONITORING. TURNED , AND COMFORT MEASURES APPLIED. SEIZURE PREC.MONITORED.
--- NOTE | 2019-03-27 16:20 | NUR ---
IN ROOM MONITORING, PATIENT WITH A PETIT MAL SEIZURE X 2 MIN. S/P SEIZURE PATIENT IS STABLE, ASLEEP, NAD, ON CONTINUOS PULSE OX MONITORING. TURNED, AND COMFORT MEASURES APPLIED.
[2019-03-27 16:40] VITALS: BP_SYST 120
--- NOTE | 2019-03-27 18:50 | NUR ---
IN ROOM MONITORING DONE, ISOLATION PRECAUTION MEASURES TAKEN. MED PASS DONE. PATIENT ASLEEP AT INTERVALS, NO S/S OF SEIZURE, PULSE AND PO2 WNL.WILL CONT TO MONITOR.
--- NOTE | 2019-03-27 19:20 | NUR ---
PT ENDORSED TO TIM THOMPSON. AT PRESENT PATIENT ASLEEP, NO S/S OF DISTRESS NOTED, HR 59-61, PO2 98-99%. PATIENT HAD ONE PETITE SZ ACTIVITY WITHIN THE 12 HOUR SHIFT ([id number]). PASSED ON IN REPORT.
--- NOTE | 2019-03-27 19:54 | NUR ---
Initial note: Received report from cosme DUMONT. Patient is resting in bed, no acute distress. Tolerating 2L NC. IV fluids infusing per MD order to right forearm IV site, no infiltration. Tubefeeding in place per MD order. Bermudez draining yellow urine to gravity. Call light with patient. Safety, fall, seizure, aspiration, contact iso precautions in place. Will continue with plan of care.
[2019-03-27 20:00] VITALS: BP_SYST 125
[2019-03-27] MEDS: cefTRIAXone 1 GM in D5W 50 ML IV SCH (20:21)
[2019-03-27] MEDS: APIXABAN 2.5 MG TABLET PO SCH (21:44)
--- NOTE | 2019-03-27 21:45 | NUR ---
Med pass: Medications scheduled for 2100 administered at this time. Tubefeeding was paused for 1 hour prior as patient will be receiving Dilantin per MD order. 0 ML residual prior to administration. HOB remains elevated above 30 degrees. Will restart tubefeeding in 1 hour.
[2019-03-28] VITALS: BP_SYST 104
[2019-03-28] MEDS: traMADol HCL HCL 50 MG TABLET (ULTRAM) GT SCH ×4 (00:02→17:33)
[2019-03-28] MEDS: TOBRAMYCIN SULFATE 0.3% EYE DROPS 5 ML OP SCH ×5 (00:04→14:13)
--- NOTE | 2019-03-28 00:20 | NUR ---
Rounds: Scheduled Ultram administered per MD order, patient tolerated well, no gastric residual before medication administration. G-tube flush of 200 ML sterile water administered. Patient tolerating 2L NC, IV fluids infusing as ordered with no infiltration at IV site, tubefeeding in place per MD order, denis draining well to gravity. All precautions remain in place. Call light with patient. Will continue to monitor.
--- NOTE | 2019-03-28 02:39 | NUR ---
Rounds: Patient is asleep, tolerating 2L NC, even and unlabored respirations. IV fluids infusing as ordered with no infiltration at IV site. Tubefeeding in place per MD order. Bermudez draining well to gravity. All precautions remain in place. Call light with patient. Will continue to monitor.
[2019-03-28] MEDS: IPRATROPIUM/ALBUTEROL SULFATE 3 ML AMPUL.NEB (DUONEB) INH SCH ×4 (03:32→15:13)
--- NOTE | 2019-03-28 04:00 | NUR ---
Incontinence/wound care: Patient had a BM, incontinence care rendered. Performed wound care to patient's sacrum and right hip per MD order and etiquette coach recommendations. Patient repositioned, tolerated well. All precautions in place. Will continue monitoring.
--- NOTE | 2019-03-28 06:51 | NUR ---
Closing note: Patient is resting in bed, no acute distress. Tolerating 2L NC. IV fluids infusing per MD order. Tubefeeding in place per MD order Addendum: 03/28/19 at 0751 by Chris Cormier RN Bermudez catheter draining yellow urine. All needs met. Safety, fall, seizure, aspiration, contact iso precautions observed. Hourly rounding performed throughout shift. Will endorse care to dayshift TIM.
[2019-03-28] MEDS: metroNIDAZOLE 500 mg/NS 100 ML IV SCH ×2 (06:57→14:12)
[2019-03-28] MEDS: D5/0.45 NS 1,000 ML IV SCH (07:01)
--- NOTE | 2019-03-28 08:00 | NUR ---
Opening notes, Received pt in bed, pt is awake, non verbal, eyes open, no signs and symptoms of pain, no sob, no resp distress. g-tube feeding infusing well with less than 10 cc residual. iv fluids infusing well. no s/s of infiltration, no swelling. no leak. safety precaution in place. call light in reach. bed in low position. will cont to monitor.
[2019-03-28 08:03] VITALS: BP_SYST 119
[2019-03-28] MEDS: PHENYTOIN 100 MG/4 ML UDC (DILANTIN) GT SCH ×2 (09:35→14:12)
[2019-03-28] MEDS: TAMSULOSIN HCL 0.4 MG CAP PO SCH (09:36)
[2019-03-28] MEDS: BACLOFEN 10 MG TABLET GT SCH ×2 (09:36→14:12)
[2019-03-28] MEDS: TERAZOSIN HCL 5 MG CAPSULE (HYTRIN) GT SCH (09:36)
[2019-03-28] MEDS: POTASSIUM CHLORIDE 20 MEQ/PKT PACKET GT SCH (09:36)
[2019-03-28] MEDS: GABAPENTIN 100 MG CAPSULE GT SCH ×2 (09:36→14:12)
[2019-03-28] MEDS: ERYTHROMYCIN 0.5% EYE OINT 3.5 GM OP SCH (09:38)
[2019-03-28] MEDS: BALSAM PERU/CASTOR OIL 60 GM OINT...G. TP SCH (09:39)
[2019-03-28] MEDS: APIXABAN 2.5 MG TABLET PO SCH (09:42)
--- NOTE | 2019-03-28 10:00 | NUR ---
pt's g-tube pump alarm, changed feeding pump.
[2019-03-28 12:39] VITALS: BP_SYST 121
--- NOTE | 2019-03-28 14:00 | NUR ---
pt turned and repositioned. no s/s of sob, no pain.
--- NOTE | 2019-03-28 15:02 | NUR ---
dr grossman here and seen patient. said okay to dc pt back to snf.
--- NOTE | 2019-03-28 15:07 | NUR ---
Dc Planning: Received dc order back to [facility]. CM called [facility] #[phone] requesting bed assignment to dc pt today. [facility] will call back to Cm dept or [facility] with bed assignment and transfer ETA. Addendum: 03/28/19 at 1520 by Moises Moseley RN >> Per [facility], given bed #49, RN to report # [phone]-- Kristal, to help arranging the ambulance transfer and notify RN on duty. Thank you.
--- NOTE | 2019-03-28 15:50 | NUR ---
ARRANGED WITH [facility] TRANSF[facility] TO [facility], RM 49. MAINTENANCE ASSOCIATE TIME IS BETWEEN 1730 TO 1800. SPOKE TO [facility]. # TO GIVE REPORT IS [phone].
[2019-03-28 16:16] VITALS: BP_SYST 109
--- NOTE | 2019-03-28 16:25 | NUR ---
sbar report given to gina jimenez of [facility], gina jimenez made of the orders to continue iv antibiotics for 1 more week.
[2019-03-28 16:41] VITALS: BP_SYST 109
--- NOTE | 2019-03-28 18:02 | NUR ---
PT ALL PREPARED FOR TRANSFER TO [facility].
--- NOTE | 2019-03-28 18:53 | NUR ---
D/C Patient Patient given medication reconciliation form and D/C instructions. Exit Care provided. Patient unable to verbalized understanding due to medical condition. Pt is non ambulatory. Dc to SNF. Patient in stable condition, ID band removed. IV catheter kept for continuation of iv antibiotics. No Rx given. Pt has no belongings when he came in. Family did not call back. Report given to TIM Weathers of [facility].
== END 2019-03-28 18:52 | DRG 720 ==
LOC: SED 02:55 → STU 06:02
PROVIDERS: ADMIT Internal Medicine; ATTEND Internal Medicine
PROC: 5A09357 Assistance with Respiratory Ventilation, Less than 24 Consecutive Hours, Continuous Positive Airway Pressure (ICD-10-PCS; 2019-03-19)
PROC: 0DBN8ZX Excision of Sigmoid Colon, Via Natural or Artificial Opening Endoscopic, Diagnostic (ICD-10-PCS; principal; 2019-03-27 08:00)
DX: A41.9 Sepsis, unspecified organism (principal); J96.21 Acute and chronic respiratory failure with hypoxia; J69.0 Pneumonitis due to inhalation of food and vomit; G82.50 Quadriplegia, unspecified; G93.1 Anoxic brain damage, not elsewhere classified; E43 Unspecified severe protein-calorie malnutrition; G93.40 Encephalopathy, unspecified; K63.3 Ulcer of intestine; L89.152 Pressure ulcer of sacral region, stage 2; R13.10 Dysphagia, unspecified; K64.8 Other hemorrhoids; I80.11 Phlebitis and thrombophlebitis of right femoral vein; I80.221 Phlebitis and thrombophlebitis of right popliteal vein; G40.909 Epilepsy, unspecified, not intractable, without status epilepticus; I10 Essential (primary) hypertension; N40.0 Benign prostatic hyperplasia without lower urinary tract symptoms; K52.9 Noninfective gastroenteritis and colitis, unspecified; Z93.1 Gastrostomy status; Z86.73 Personal history of transient ischemic attack (TIA), and cerebral infarction without residual deficits; Z86.718 Personal history of other venous thrombosis and embolism; Z22.322 Carrier or suspected carrier of Methicillin resistant Staphylococcus aureus; Z79.01 Long term (current) use of anticoagulants; Z68.23 Body mass index [BMI] 23.0-23.9, adult; Z79.899 Other long term (current) drug therapy
CPT/HCPCS: 36415; 36600; 45380; 71045; 80048; 80053; 80061; 80074; 80185-TC; 80202-TC; 81000-TC; 82803-TC; 82962; 83605; 83735-TC; 83880; 84439; 84443-TC; 84484; 85025; 85610-TC; 85730-TC; 86710; 86886; 86900; 86901; 87040-TC; 87045-TC; 87046; 87081; 87086; 87230-TC; 88305; 89055; 93005; 93970; 94640; 94660; 94760; 96365; 96368; 99285; G0378; J0456; J0696; J1644; J1650; J2175; J2250; J2543; J3370; J3480; J3490; J7030; J7050; J7060; J7120; J7620; Q9967